=== PATIENT | female | born 1945 | race Caucasian/White ===

== ENCOUNTER → 2017-02-16 | Outpatient (CLI) | payer MEDICARE | END | disposition home or self-care (01) | LOC: LABWHC1 12:17 | PROVIDERS: ATTEND Orthopaedic Surgery | DX: Z01.812 Encounter for preprocedural laboratory examination (principal) | CPT/HCPCS: 87070 ==

== ENCOUNTER 2017-03-29 06:20 | Inpatient (IN) | payer MEDICARE ==
[2017-03-23 12:26] VITALS: BMI 35.1
--- NOTE | 2017-03-28 09:24 | HP ---
HISTORY AND PHYSICAL CHIEF COMPLAINT: Right knee pain. HISTORY OF PRESENT ILLNESS: The patient is a 71-year-old retired female who presents with progressive right knee pain secondary to osteoarthrosis despite extensive conservative measures. She is having pain that limits her normal function and activities. She has swelling and clicking. She has tried medications as well as injections. PAST MEDICAL HISTORY: Significant for diabetes, hypertension, renal disease, arthritis. PAST SURGICAL HISTORY: Significant for a right carpal tunnel release in addition to left rotator cuff repair. CURRENT MEDICATIONS: 1. Lisinopril. 2. Spironolactone. 3. Aspirin. She denies drug allergies. FAMILY HISTORY: Significant for cancer. SOCIAL HISTORY: Negative for current tobacco or alcohol use. 16 POINT REVIEW OF SYSTEMS: Otherwise reviewed and is noncontributory. On examination, the patient is approximately 5 foot 3, 188 pounds of endomorphic habitus. HEENT exam is nonfocal. Neck is supple. She has painless passive motion of her right hip. Active motion of her right knee is -8 to 110 degrees of flexion. She is tender about the lateral joint line. She has a large effusion. Collaterals are stable, Seema's negative, Mayela's is equivocal. She has genu valgum alignment. Her distal neurovascular exam appears to be intact in the left lower extremity. Weightbearing. notch., lateral and Merchant views of the right knee obtained in the office show severe lateral and patellofemoral compartment narrowing. IMPRESSION: 1. Right knee severe lateral and patellofemoral compartment osteoarthrosis. 2. Diabetes. 3. Increased body mass index. RECOMMENDATIONS: I talked to the patient at length regarding her treatment options. At this point, she opts to proceed with surgery. We will plan to proceed with right total knee arthroplasty. Risks and benefits were discussed at length in layman's terms. We will institute DVT prophylaxis postoperatively. MMODL / IJN: [id number] /
[~2017-03-29 06:20] MED LIST: ACETAMINOPHEN TAB 500 MG TAB PO ONE; DEXAMETHASONE SOD PHOSPHATE 10 MG/ML 1 ML VIAL IV ONE; MELOXICAM 7.5 MG TAB PO ONE; MIDAZOLAM 2 MG/2 ML VIAL IV PRN; ONDANSETRON 4 MG/2 ML VIAL IVP ONE; TRANEXAMIC ACID 1,000 MG in SODIUM CHLORIDE 0.9% 100 ML IVPB ONE; ceFAZolin 2 GM in SODIUM CHLORIDE 0.9% 100 ML IVPB ONE; fentaNYL (PF) 50 MCG/ML 2 ML AMP IV PRN
[2017-03-29] MEDS ORDERED: LIDOCAINE 1% 20 ML VIAL (10MG/ML) FOR IV START INTRADERMA ONE (06:54)
[2017-03-29] MEDS: LACTATED RINGERS 1,000 ML IV SCH (06:54)
[2017-03-29 07:07] LABS: Glucose,Whole Blood 125 mg/dL (75-99)
[2017-03-29] MEDS ORDERED: fentaNYL (PF) 50 MCG/ML 2 ML AMP IV ONE (07:19)
[2017-03-29] MEDS ORDERED: MIDAZOLAM 2 MG/2 ML VIAL ONE (08:05)
[2017-03-29] MEDS ORDERED: ceFAZolin 3,000 MG in SODIUM CHLORIDE 0.9% IRRIGATIO 3,000 ML IRRIGATION ONE (08:05)
[2017-03-29] MEDS ORDERED: fentaNYL (PF) 50 MCG/ML 2 ML AMP ONE (08:05)
[2017-03-29] MEDS ORDERED: PHENYLEPHRINE-0.9% NACL SYG 1 MG/10 ML SYRINGE ONE (08:05)
[2017-03-29] MEDS ORDERED: SODIUM CHLORIDE 0.9% 100 ML BAG ONE (08:05)
[2017-03-29] MEDS ORDERED: ePHEDrine SULFATE/0.9% NACL/PF 50 MG/5 ML SYRINGE IV ONE (08:05)
[2017-03-29] MEDS ORDERED: PROPOFOL 10 MG/ML 20 ML VIAL IV ONE (08:05)
[2017-03-29] MEDS ORDERED: TRANEXAMIC ACID 1,000 MG/10 ML VIAL ONE (08:05)
[2017-03-29] MEDS: ROPIVACAINE 246.25 MG, EPINEPHrine 0.5 MG, KETOROLAC 30 MG, cloNIDine HCL/PF 80 MCG, WA... MISCELLANE ONE ×10 (08:38→09:33)
[2017-03-29] MEDS ORDERED: LACTATED RINGERS 1,000 ML IV ONE ×2 (09:17→14:29)
[2017-03-29] MEDS ORDERED: MAGNESIUM HYDROXIDE 2,400 MG/10 ML CUP PO PRN (09:46)
[2017-03-29] MEDS ORDERED: ONDANSETRON 4 MG/2 ML VIAL IVP PRN (09:46)
[2017-03-29] MEDS ORDERED: NALOXONE 0.4 MG/ML 1 ML VIAL IV PRN (09:46)
[2017-03-29] MEDS ORDERED: ACETAMINOPHEN TAB 325 MG TAB PO PRN (09:46)
[2017-03-29] MEDS ORDERED: ROPIVACAINE 1,100 MG, SODIUM CHLORIDE 0.9% 330 ML MISCELLANE PRN ×2 (09:48)
--- NOTE | 2017-03-29 09:51 | P.ONQ ---
Anesthesiology Proc Note - PNB - Peripheral Nerve Block Performed Right Adductor Canal Infusion Time Out Performed: Yes Indication: Acute Post-Operative Pain, Analgesia Specifically requested for management of pain by : Mauro Rich Sedation Type: Sedate with meaningful contact maintained Preparation: Sterile Prep Position: Supine Catheter Depth at Skin (cm): 8 Needle Types: Other (see comment) (pajunk) Needle Size: 100mm (4") Needle Gauge: 18 Technique: Ultrasound Injectate: 0.5% Ropivacaine (see comment for volume) (20 cc) Blood Aspirated: No Pain Paresthesia on Injection Noted: No Resistance on Injection: Normal Events: Uneventful and Well Tolerated
--- NOTE | 2017-03-29 09:51 | P.DS ---
Providers Date of admission: 03/29/17 06:20 Expected date of discharge: 03/31/17 Attending physician: Mauro Rich Consults: 03/29/17 09:46 Consult Physician Routine Consulting Provider: Fausto Velez Reason/Comments: medical managment Do you want consulting provider notified?: Yes Primary care physician: Fausto Velez [facility] Course: Date of admission: 03/29/2017 Date of discharge: 03/31/2017 Admission diagnosis: Right total knee arthroplasty Discharge diagnosis: Same Attending physician: Dr. Rich Surgical procedures: Right total knee arthroplasty Brief history: Patient is a 71-year-old female with a history of progressive primary right knee has arthritis. At this point patient has failed conservative treatment measures and has opted to proceed with a elective right total knee arthroplasty. Hospital course: Details of patient's surgery can be found in operative report. Patient tolerated the procedure well and was subsequently transported to orthopedic floor. Patient's orthopeidc and medical care was provided daily. Patient had daily laboratory tests performed for evaluation of overall blood counts. Patient had daily physical therapy to include strengthening range of motion as well as education with walker ambulation. Patient had daily CPM usage as part of their physical therapy program. Patient was treated with Xarelto for their postoperative DVT prophylaxis during their inpatient stay. Patient was noted to have a relatively uneventful postoperative course. Patient reported satisfactory pain control with oral pain medications by postoperative day 0. Patient showed satisfactory progress with physical therapy. Patient moved steadily through the program and had no difficulty meeting the goals by postoperative day 2. Given patient's otherwise satisfactory course and having met physical therapy goals, plan is to discharge patient home on postoperative day 2. Discharge condition/disposition: Patient will be discharged home] in stable condition. Discharge medications: Instructions are given on resumption of patient's normal daily medications per primary care recommendation, in addition patient will be prescribed [place] 7.5 mg/325 mg, tramadol 50 mg, Pepcid 20 mg, Xarelto 10 mg. Discharge instructions: 1. Wound care and infection precautions, [keep incision dry and covered while showering], no lotions, creams, moisturizers. No soaking, tubs, pools, hottubs. Do not scrub over the incision. 2. Weight-bear [as tolerated] with walker / cane until follow-up. 3. Ice and elevate when necessary. Do not exceed 20 minutes per hour with ice pack. 4. Utilize compression sleeve until seen at first follow up appointment. 5. Visiting nursing care. 6. Home physical therapy [including home CPM]. 7. Pain meds and anticoagulants per prescription. 8. Pain medication has potential to cause constipation. Increase oral fluid and fiber intake. Contact primary care provider if you have not had a bowel movement within 48 hours after discharge 9. No anti-inflammatory medication until discussed at first post operative visit, this including Motrin, Aleve, Mobic, Diclofenac. 10. Follow up in office at 2 weeks postop with Doug Hernandez PA-C 11. Follow up with your primary care doctor 7-10 days after discharge. 12. Contact [facility] with any questions, . Procedures: Right total knee arthroplasty Patient Condition at Discharge: Good Plan - Discharge Summary New Discharge Prescriptions: New Rivaroxaban [Xarelto] 10 mg PO DAILY #12 tab Famotidine [Pepcid] 20 mg PO DAILY #30 tablet HYDROcodone/APAP 7.5-325MG [[place] 7.5] 1 - 2 each PO Q6HR PRN #60 tab PRN Reason: Pain traMADol HCl [Ultram] 50 mg PO Q6H PRN #40 tab PRN Reason: Pain No Action Multivitamins, Thera [Multivitamin] 1 tab PO DAILY Spironolactone [Aldactone] 25 mg PO BID Lisinopril [Zestril] 5 mg PO DAILY Cholecalciferol [Vitamin D3] 2,000 unit PO BID Calcium Carbonate/Vitamin D3 [Calcium 500-Vit D3 600 Tablet] 1 tab PO DAILY Aspirin [Adult Low Dose Aspirin EC] 81 mg PO HS Magnesium Oxide [Mag-Ox] 250 mg PO BID Docusate [Colace] 100 mg PO DAILY Discharge Medication List Aspirin [Adult Low Dose Aspirin EC] 81 mg PO HS 07/01/16 [History] Calcium Carbonate/Vitamin D3 [Calcium 500-Vit D3 600 Tablet] 1 tab PO DAILY [History] Cholecalciferol [Vitamin D3] 2,000 unit PO BID 07/01/16 [History] Lisinopril [Zestril] 5 mg PO DAILY 07/01/16 [History] Multivitamins, Thera [Multivitamin] 1 tab PO DAILY 07/01/16 [History] Spironolactone [Aldactone] 25 mg PO BID 07/01/16 [History] Docusate [Colace] 100 mg PO DAILY 03/23/17 [History] Magnesium Oxide [Mag-Ox] 250 mg PO BID 03/23/17 [History] Rivaroxaban [Xarelto] 10 mg PO DAILY #12 tab 03/29/17 [Rx] Famotidine [Pepcid] 20 mg PO DAILY #30 tablet 03/30/17 [Rx] HYDROcodone/APAP 7.5-325MG [[place] 7.5] 1 - 2 each PO Q6HR PRN #60 tab 03/30/17 [ Rx] traMADol HCl [Ultram] 50 mg PO Q6H PRN #40 tab 03/30/17 [Rx] Follow up Appointment(s)/Referral(s): Fausto Velez MD [Primary Care Provider] - 04/07/17 8:00 am Salty Hernandez PAC [PHYSICIAN MIDDLEWARE ARCHITECT] - 04/13/17 2:10 pm Activity/Diet/Wound Care/Special Instructions: Orthopedic Discharge Instructions: 1. Wound care and infection precautions, keep incision dry and covered while showering, no lotions, creams, moisturizers. No soaking, pools, hot tubs. Do not scrub over incision. 2. Weight-bear as tolerated with walker / cane until follow-up. 3. Ice and elevate when necessary. Do not exceed 20 minutes per hour with ice pack. 4. Utilize compression sleeve until seen at first follow up appointment. 5. Visiting nursing care. 6. Home physical therapy including home CPM. 7. Pain meds and anticoagulants per prescription. 8. Pain medication has potential to cause constipation. Increase oral fluid and fiber intake. Contact primary care provider if you have not had a bowel movement within 48 hours after discharge. 9. No anti-inflammatory medication until discussed at first post operative visit, this including Motrin, Aleve, Mobic, Diclofenac. 10. Follow up in office at 2 weeks postop with Doug Hernandez PA-C 11. Follow up with your primary care doctor 7-10 days after discharge. 12. Contact [facility] with any questions, . Discharge Disposition: HOME WITH HOME HEALTH SERVICES
--- NOTE | 2017-03-29 10:19 | P.OP ---
Date of Procedure: 03/29/17 Preoperative Diagnosis: Right knee severe tricompartmental osteoarthrosis-primary Postoperative Diagnosis: Same Procedure(s) Performed: Right total knee mmmoypvlmnor-qewdjbex-qyltjpjte stabilized Implants: Depuy Attune size 5 cemented femoral component, size 5 cemented tibial component , 11 mm articular surface, 35 mm cemented patellar component. This is a posterior stabilized implant. Anesthesia: regional, local, spinal Surgeon: Mauro Rich Enlisted Aircrew/Aerial Observer/Gunner #1: Salty Hernandez Estimated Blood Loss (ml): 50 Pathology: other (Bone fragments) Condition: stable Disposition: PACU Indications for Procedure: The patient's a 71-year-old female who presents with progressive right knee pain secondary to osteoarthrosis despite conservative measures. A discussion of the risks and benefits of operative intervention versus continued conservative measures was made with the patient. She opted to proceed with surgery. Operative risks to include infection, neurovascular injury, development of blood clots, possible component loosening, possible component failure and need for subsequent procedures was discussed. Informed consent was obtained. Operative Findings: As below Description of Procedure: The patient was brought to the operating room, and after induction of spinal anesthesia the right lower extremity was prepped and draped in a normal fashion. The tourniquet was inflated to 270 mmHg. A longitudinal incision extending 3 finger breaths above the superior pole of the patella extending to the medial aspect of the tibial tubercle was then made. The skin and subcutaneous tissues were divided sharply. Electrocautery was used for hemostasis. A medial parapatellar arthrotomy was performed. The medial soft tissues to include the superficial and deep portions of the medial collateral ligament were elevated subperiosteally. The patella was everted. A portion of the retropatellar fat pad was excised sharply. The knee was flexed. The anterior cruciate ligament was sacrificed. A starting hole was made in the distal femur 1 cm anterior to the posterior cruciate ligament origin. An intramedullary femoral guide was inserted planning on 5 valgus distal cut with 9 mm distal resection. The cutting block was pinned in place. The distal cut was then made. The posterior referencing sizing guide was utilized. 3 of external rotation was built into the system and verified off the trans- epicondylar axis and the posterior condyles. The cutting block was pinned in place. I felt size 5 was most appropriate. The anterior, posterior, and chamfer cuts were then made. The bone fragments were removed. The box cutting guide was placed and pinned. The proximal cut was made with a reciprocating saw. The bone block was removed in one fragment. The trial size 5 femoral component was placed and was fully seated. There was good anterior to posterior and medial to lateral fit. The distal peg holes were drilled. Attention was then paid towards preparing the proximal tibia. An extra medullary guide was utilized in line with the tibial shaft and second metatarsal distally. 3 of posterior slope was planned. I planned on 2 mm resection from the lateral compartment. The cutting block was pinned in place. The proximal tibia cut was made in the bone removed in one fragment. The tibia sized most appropriately at size 5. The remnants of the medial and lateral menisci were excised the capsule junction with electrocautery. The trial femoral and tibial components were placed along with an 11 mm articular surface. I was able to obtain full flexion and extension with good stability with varus and valgus stress. After several flexion and extension cycles the tibial rotation was marked with electrocautery in line with the medial one third of the tibial tubercle. I did piecrust the iliotibial tract to help with balancing. Attention was then paid towards preparing the patella. A patella reamer was utilized taking this down to 14 mm of bone stock. A good flush cut was made. The patella sized most appropriately at 35 mm. The peg holes were drilled. The trial component was placed. The knee was taken through range of motion. I had good patellofemoral tracking with no hands technique. The trial components were then removed. The posterior osteophytes of the distal femur were carefully removed with a curved osteotome. The tibia was prepared in the appropriate rotation with appropriate drill and keel punch. The flexion and extension gaps were checked and felt to be symmetric. The posterior soft tissues were injected with ropivacaine. The bony surfaces were prepared with pulsatile lavage and dried. The tibial component was then cemented in placed and was fully seated. Excess cement was removed. The femoral component was cemented place and was fully seated. Excess cement was removed. The trial 11 mm articular surface was placed and the knee was put in full extension. The patella component was cemented in place. After the cement had sufficiently hardened, the knee was again taken through range of motion. Again I was able to obtain full flexion and extension with good stability with varus and valgus stress. The trial articular surface was removed and the final one inserted. This was fully seated. Care taken to avoid any soft tissue interposition. Pulsatile lavage was again utilized. The medial parapatellar arthrotomy was closed with #2 Ethibond suture. A deep drain was placed exiting laterally. Final hemostasis was obtained with electrocautery and the tourniquet was deflated with approximately 1 hour total tourniquet time. The second dose of IV TXA was given. The subcutaneous tissues were reapproximated with interrupted 2-0 Vicryl sutures. The skin was reapproximated with 3-0 subcuticular strata fix suture. Skin tape and adhesive was applied. A sterile dressing was applied. The patient was awoken from sedation and transferred to recovery room in good condition. Blood loss was estimated 50 mL. No complications were incurred. Sponge and needle counts were correct at the end the case.
[2017-03-29 10:26] LABS: Glucose,Whole Blood 148 mg/dL (75-99)
--- NOTE | 2017-03-29 10:33 | XR ---
EXAMINATION TYPE: XR knee limited RT DATE OF EXAM: 03/29/2017 COMPARISON: NONE TECHNIQUE: Two views submitted HISTORY: Post op FINDINGS: There is a prosthetic knee in near anatomic alignment. There is soft tissue edema and emphysema. Vora rgical drain noted. IMPRESSION: 1. Postoperative change. Appears in near-anatomic alignment
[2017-03-29] MEDS: HYDROcodone/APAP 7.5-325MG 1 EACH TAB PO PRN (17:24)
[2017-03-29] MEDS: ceFAZolin 2 GM in SODIUM CHLORIDE 0.9% 100 ML IVPB SCH (17:38)
[2017-03-29] MEDS: SENNOSIDES-DOCUSATE SODIUM 1 EACH TAB PO SCH (20:23)
[2017-03-30] MEDS: HYDROcodone/APAP 7.5-325MG 1 EACH TAB PO PRN ×5 (00:19→20:42)
[2017-03-30] MEDS: ceFAZolin 2 GM in SODIUM CHLORIDE 0.9% 100 ML IVPB SCH (00:19)
[2017-03-30] MEDS: traMADol 50 MG TAB PO PRN ×5 (02:07→23:05)
[2017-03-30 02:24] VITALS: RESP 16
[2017-03-30 07:07] LABS: Glucose,Whole Blood 111 mg/dL (75-99)
[2017-03-30 07:11] LABS: Basophils % (A) 0 %; CH 31.6; CHCM 33.5; Eosinophils % (A) 0 %; HCT 35.7 % (34.0-46.0); HDW 2.85; HGB 11.6 gm/dL (11.4-16.0); Luc % (Auto) 1; Lymphocytes # (A) 1.2 k/uL (1.0-4.8); Lymphocytes % (A) 10 %; MCH 30.9 pg (25.0-35.0); MCHC 32.6 g/dL (31.0-37.0); MCV 94.9 fL (80.0-100.0); Mean Platelet Volume 7.5; Monocytes # (A) 0.8 k/uL (0-1.0); Monocytes % (A) 7 %; Neutrophils # (A) 9.4 k/uL (1.3-7.7); Neutrophils % (A) 82 %; RBC 3.76 m/uL (3.80-5.40); RDW 14.1 % (11.5-15.5); WBC 11.6 k/uL (3.8-10.6); WBC (Perox) 11.93
[2017-03-30] MEDS: LACTATED RINGERS 1,000 ML IV SCH ×2 (07:11→22:58)
[2017-03-30] MEDS: RIVAROXABAN 10 MG TAB PO SCH (08:42)
[2017-03-30] MEDS: FAMOTIDINE 20 MG TAB PO SCH (08:43)
--- NOTE | 2017-03-30 09:58 | P.PN ---
Subjective Principal diagnosis: Status post right total knee arthroplasty Patient is seen today resting in her hospital chair, she appears comfortable. Pain is well-controlled. She did have some increasing pain last night. Urinary cath is discontinued, she's ambulated with therapy. Patient denies any headaches, lightheadedness, chest pain, shortness of breath, abdominal discomfort, fever or chills. Objective - Vital Signs Vital signs: Vital Signs Temp 97.7 F 03/30/17 07:29 Pulse 72 03/30/17 07:29 Resp 16 03/30/17 07:29 BP 116/59 03/30/17 07:29 Pulse Ox 96 03/30/17 07:29 Intake & Output 03/29/17 03/30/17 03/30/17 18:59 06:59 18:59 Intake Total 1701 100 Output Total 1050 1470 100 Balance 651 -1470 0 Weight 84.368 kg Intake: IV 1701 Oral 100 Output: Drainage 220 Right Knee 220 Urine 950 1250 100 Uretheral (Yañez) 100 Estimated Blood Loss 100 - Exam R lower extremity: Incision is clean, dry, and intact. The prineo tape is in good condition. There is minimal soft tissue swelling and ecchymosis surrounding the medial and lateral aspects of the incision. Calf is soft, no tenderness with palpation. Plantar flexion, dorsiflexion, EHL, FHL are intact. Sensory exam to light touch throughout the extremity is intact, dorsal pedis pulses 2+. - Labs CBC & Chem 7: 03/30/17 06:30 Labs: Abnormal Lab Results - Last 24 Hours (Table) 03/29/17 03/30/17 03/30/17 Range/Units 10:20 06:30 07:03 WBC 11.6 H (3.8-10.6) k/uL RBC 3.76 L (3.80-5.40) m/uL Neutrophils # 9.4 H (1.3-7.7) k/uL POC Glucose (mg/dL) 148 H 111 H (75-99) mg/dL Assessment and Plan Plan: Assessment: 1. Postop day 1 status post right total knee arthroplasty Plan: 1. Pain control, we'll discharge home on oral medication 2. Home nursing and therapy after discharge 3. Wound care instructions discussed with patient, including but icing and elevating techniques 4. GI and DVT prophylaxis, Xarelto 10 mg once a day at discharge 5. Medical recommendations 6. Discharge planning: Patient will possibly be discharged home later today, if not tomorrow Time with Patient: Less than 30
[2017-03-30 11:21] LABS: Glucose,Whole Blood 132 mg/dL (75-99)
[2017-03-30] MEDS ORDERED: MORPHINE SULFATE 4 MG/ML SYRINGE IVP PRN (16:39)
--- NOTE | 2017-03-30 19:57 | CONS ---
CONSULTATION DATE OF CONSULTATION: 03/30/2017 REASON FOR CONSULTATION: Medical management requested by Dr. Velez. This is a pleasant 71-year-old patient who has undergone a right total knee arthroplasty. The patient is a diet controlled diabetic, hypertension, osteoarthritis of the joints, chronic kidney disease, and chronic low back pain. The patient has undergone a right total knee arthroplasty. Having some pain in the joints and spasms. No nausea or vomiting. at the bedside. Sitting up in a chair. Denies any cardiac history. Did tolerate her breakfast. REVIEW OF SYSTEMS: CONSTITUTIONAL: None. HEENT: None. RESPIRATORY: None. CARDIOVASCULAR: None. GASTROINTESTINAL: None. GENITOURINARY: None. MUSCULOSKELETAL: As above. DERMATOLOGICAL: None. HEMATOLOGICAL: None. LYMPHATICS: None. PSYCHIATRIC: None. NEUROLOGICAL: None. PAST HISTORY: Diet control diabetes, hypertension, osteoarthritis, kidney disease, chronic low back pain. 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 SOCIAL HISTORY: . Alcohol rarely. Does not smoke. FAMILY HISTORY: Reviewed, noncontributory to presentation. HOME MEDICATIONS: 1. Aldactone 25 mg p.o. b.i.d. 2. Multivitamin 1 tab p.o. daily. 3. Magnesium oxide 250 mg p.o. b.i.d. 4. Zestril 5 mg p.o. daily. 5. Colace 100 mg p.o. daily. 6. Vitamin D3, 2,000 units p.o. daily. 7. Calcium with vitamin D3, 1 tab p.o. daily. 8. Aspirin 81 mg p.o. q.h.s. 9. Ultram 50 mg p.o. q.6h p.r.n. 10.Xarelto 10 mg p.o. daily. 11.[place] 7.5, 1-2 tablets q.6h p.r.n. 12.Pepcid 20 mg p.o. daily. ALLERGIES: DILAUDID AND MEPERIDINE. PHYSICAL EXAMINATION: Temperature 96.8, pulse 71, respirations 16, blood pressure 96/50, pulse ox 95% on room air. GENERAL APPEARANCE: Well built, BMI 35.1. Sitting up in a chair comfortable. EYES: Pupils equal. Conjunctivae normal. HEENT: Oral cavity normal. NECK: JVD not raised. Mass not palpable. Respiratory effort normal. LUNGS: Clear. CARDIOVASCULAR; First and second sounds normal. No edema. ABDOMEN: Soft, nontender. Liver and spleen not palpable. LYMPHATICS: No lymph node palpable in neck or axilla. PSYCHIATRY: Alert and oriented x3. Mood and affect normal. NEUROLOGICAL: grossly intact. Power and sensation grossly intact. MUSCULOSKELETAL: Dressing over the right knee. INVESTIGATIONS: White count 10.6, hemoglobin 11.6. Accu-Cheks are noted. ASSESSMENT: 1. Right total knee arthroplasty. 2. Primary osteoarthritis, multiple joints bilateral. 3. Postoperative hypotension, could be a combination of blood loss and anesthesia. 4. Essential hypertension history, currently blood pressure is running low. 5. Chronic kidney disease. I do not have the patient's renal function. Will check it today. Care was discussed with the patient and at the bedside. Questions were answered. Pain control as per the primary team. For DVT prophylaxis the patient is on Xarelto. Thank you, Dr. Rich. KACIEL / NAKULN: [id number] /
[2017-03-30] MEDS: SENNOSIDES-DOCUSATE SODIUM 1 EACH TAB PO SCH (20:42)
[2017-03-30] MEDS: hydrOXYzine PAMOATE 25 MG CAP PO PRN (22:30)
[2017-03-31] MEDS: HYDROcodone/APAP 7.5-325MG 1 EACH TAB PO PRN ×2 (04:22→09:29)
[2017-03-31] MEDS: hydrOXYzine PAMOATE 25 MG CAP PO PRN (04:22)
[2017-03-31] MEDS ORDERED: LISINOPRIL 5 MG TAB PO SCH (09:00)
[2017-03-31] MEDS: RIVAROXABAN 10 MG TAB PO SCH (09:29)
[2017-03-31] MEDS: FAMOTIDINE 20 MG TAB PO SCH (09:30)
[2017-03-31 10:14] VITALS: BP 135/78; PULSE 83; TEMP 97.4
--- NOTE | 2017-03-31 11:31 | CDI ---
In responding to this query, please exercise your independent professional judgment. The [facility] Coding Staff and Clinical Documentation Specialists appreciate your assistance in clarifying documentation, maintaining compliance with coding guidelines, accurately documenting patients condition and capturing severity of illness. The fact that a question is asked does not imply that any particular answer is desired or expected. Communication forms are a method of clarifying documentation and are not made part of the Legal Health Record. Thank you in advance for your clarification. Last Revision, Aug 2016 Ashley Enriquez [address] [place] [address] Documentation Clarification Form Date: 03/31/2017 11:12:00 AM From: Laura Pearl CCS, CCDS Admit Date: 03/29/2017 6:20:00 AM Patient Name: Erika Fall Visit Number: [id number] Discharge Date: Dr. Raad Guillen: Postoperative hypotension, could be a combination of blood loss & anesthesia is documented in the medical management consult. Patients Admitting Diagnosis: Primary osteoarthritis, multiple joints bilateral. Post-Operative Diagnosis: same Procedure performed: Right total knee arthroplasty. History/Risk Factors: Hypertension, CKD (stage not documented), DM Clinical Indicators: VS: Preop BP 144/71, Postop BP 91/53, 82/49, 116/59 at discharge. Hemoglobin stable. Treatment: Home meds: Lisinopril, Spironolactone, Aspirin. Pain managed with peripheral nerve block & po meds. Consults: Medical management In order to accurately reflect this patients severity of illness, please clarify if the post-operative diagnosis is: An expected post-procedural or post-surgical condition Integral to the procedure Inherent to the procedure An unexpected post-procedural or post-surgical condition, related to surgical care Other, please specify Unable to determine Please document in your progress notes and discharge summary in order to capture severity of illness and risk of mortality. Include clinical findings that support your diagnosis. FYI: Press F11 to launch patient chart MTDD
--- NOTE | 2017-03-31 11:42 | CDI ---
In responding to this query, please exercise your independent professional judgment. The [facility] Coding Staff and Clinical Documentation Specialists appreciate your assistance in clarifying documentation, maintaining compliance with coding guidelines, accurately documenting patients condition and capturing severity of illness. The fact that a question is asked does not imply that any particular answer is desired or expected. Communication forms are a method of clarifying documentation and are not made part of the Legal Health Record. Thank you in advance for your clarification. Last Revision, May 2015 Ashley Enriquez [address] [place] [address] Documentation Clarification Form Date: 03/31/2017 11:33:00 AM From: Laura Pearl CCS, CCDS Admit Date: 03/29/2017 6:20:00 AM Patient Name: Erika Fall Visit Number: [id number] Discharge Date: Dr. Raad Guillen: Per the medical management consult: this patient has a history of DM & chronic kidney disease. The patient's renal function was unknown & was to be evaluated. Current & Baseline BUN/CR/GFR unavailable. Gluce 125, 148, 111, 132. Treatment: IV Kefzol, IV Zofran, IV Fentanyl, IV Morphine. PT. In order to capture the severity of condition, please clarify if the condition signifies, if possible: CKD Stage 1 (GFR > 90) CKD Stage 2 (GFR 60-89) CKD Stage 3 (GFR 30-59) CKD Stage 4 (GFR 15-29) CKD Stage 5 (GFR <15) ESRD Unable to determine Other condition, please specify Please document in your progress notes and discharge summary in order to capture severity of illness and risk of mortality. Include clinical findings that support your diagnosis. FYI: Press F11 to launch patient chart. JO-ANN
--- NOTE | 2017-03-31 12:18 | P.PN ---
Subjective Principal diagnosis: Status post right total knee arthroplasty Patient is seen today resting in her hospital chair, she appears comfortable. Pain is well-controlled. Patient denies any headaches, lightheadedness, chest pain, shortness of breath, abdominal discomfort, fever or chills. Objective - Vital Signs Vital signs: Vital Signs Temp 97.4 F L 03/31/17 07:00 Pulse 83 03/31/17 07:00 Resp 16 03/31/17 07:00 BP 135/78 03/31/17 07:00 Pulse Ox 100 03/31/17 07:00 Intake & Output 03/30/17 03/31/17 03/31/17 18:59 06:59 18:59 Intake Total 330 Output Total 500 Balance -170 Intake: IV 50 Lactated Ringers 1,000 ml 50 @ 50 mls/hr IV .Q20H JAGUAR Rx#:[id number] Oral 280 Output: Urine 500 Uretheral (Yañez) 100 Other: # Voids 1 1 2 - Exam : Incision is clean, dry, and intact. The prineo tape is in good condition. There is minimal soft tissue swelling and ecchymosis surrounding the medial and lateral aspects of the incision. Calf is soft, no tenderness with palpation. Plantar flexion, dorsiflexion, EHL, FHL are intact. Sensory exam to light touch throughout the extremity is intact, dorsal pedis pulses 2+. - Labs CBC & Chem 7: 03/30/17 06:30 Assessment and Plan Plan: Assessment: 1. Postop day 2 status post right total knee arthroplasty Plan: 1. Pain control, we'll discharge home on oral medication 2. Home nursing and therapy after discharge 3. Wound care instructions discussed with patient, including but icing and elevating techniques 4. GI and DVT prophylaxis, Xarelto 10 mg once a day at discharge 5. Medical recommendations 6. Discharge planning: Patient will be discharged home today Time with Patient: Less than 30
--- NOTE | 2017-03-31 14:09 | CONS ---
CONSULTATION ADDENDUM: DATE OF CONSULTATION: 03/30/2017 ASSESSMENT: Acute postoperative hypertension likely an expected inherent manifestation of anesthesia and surgery. MMODL / IJN: [id number] /
--- NOTE | 2017-03-31 18:16 | PN ---
PROGRESS NOTE DATE OF SERVICE: 03/31/2017 This 71-year-old woman who was admitted after right total knee arthroplasty improved significantly. No chest pain. No palpitations. No fever. EXAM: Alert, oriented x3. Pulse 69, blood pressure 111/71, respiratory 16, temperature 98 degrees, pulse ox 98% room air. HEENT: Conjunctivae normal. Oral mucosa moist. NECK: No jugular venous distention. No carotid bruit. No lymph node enlargement. CARDIOVASCULAR: S1, S2. RESPIRATORY: Breath sounds diminished in the bases. No rhonchi, no crackles. ABDOMEN: Soft, nontender. LEGS: No edema. NERVOUS SYSTEM: No focal deficits. LABS: At this time shows WBC 7.2, hemoglobin 7.6. ASSESSMENT: 1. Status post right hip hemiarthroplasty. 2. Degenerative joint disease. 3. Postoperative hypotension could be related to anesthesia. 4. History of hypertension. 5. History of chronic kidney disease. RECOMMENDATIONS AND DISCUSSION: Recommend to continue current medications, continue symptomatic treatment. Resume the home medications. Follow closely with primary physician and Orthopedic surgery. Further recommendations to follow. MMODL / IJN: [id number] /
== END 2017-03-31 13:30 | disposition home health service (06) | DRG 470 ==
LOC: 2ORMAIN 06:20 → 3SUR 14:25
PROVIDERS: ADMIT Orthopaedic Surgery; ATTEND Orthopaedic Surgery
PROC: 0SRC0J9 Replacement of Right Knee Joint with Synthetic Substitute, Cemented, Open Approach (ICD-10-PCS; principal; 2017-03-29 08:00)
DX: M17.11 Unilateral primary osteoarthritis, right knee (principal); I95.9 Hypotension, unspecified; E11.22 Type 2 diabetes mellitus with diabetic chronic kidney disease; M21.061 Valgus deformity, not elsewhere classified, right knee; G89.29 Other chronic pain; M54.5 Low back pain; M19.91 Primary osteoarthritis, unspecified site; I12.9 Hypertensive chronic kidney disease with stage 1 through stage 4 chronic kidney disease, or unspecified chronic kidney disease; N18.9 Chronic kidney disease, unspecified; Z79.82 Long term (current) use of aspirin; Z79.899 Other long term (current) drug therapy; Z88.5 Allergy status to narcotic agent
CPT/HCPCS: 85025; 88300

== ENCOUNTER 2017-09-14 06:56 | Day surgery (SDC) | payer MEDICARE ==
[2017-09-13 13:06] VITALS: BMI 34.4
[~2017-09-14 06:56] MED LIST changes: -ACETAMINOPHEN TAB 500 MG TAB PO ONE; -DEXAMETHASONE SOD PHOSPHATE 10 MG/ML 1 ML VIAL IV ONE; +LACTATED RINGERS 1,000 ML IV SCH; -MELOXICAM 7.5 MG TAB PO ONE; -MIDAZOLAM 2 MG/2 ML VIAL IV PRN; -ONDANSETRON 4 MG/2 ML VIAL IVP ONE; -TRANEXAMIC ACID 1,000 MG in SODIUM CHLORIDE 0.9% 100 ML IVPB ONE; -ceFAZolin 2 GM in SODIUM CHLORIDE 0.9% 100 ML IVPB ONE; -fentaNYL (PF) 50 MCG/ML 2 ML AMP IV PRN
[2017-09-14 07:27] VITALS: TEMP 98.3
[2017-09-14] MEDS ORDERED: LIDOCAINE 1% 20 ML VIAL (10MG/ML) FOR IV START INTRADERMA ONE (07:38)
[2017-09-14 07:42] LABS: Glucose,Whole Blood 123 mg/dL (75-99)
[2017-09-14] MEDS ORDERED: PROPOFOL 10 MG/ML 20 ML VIAL IV ONE (07:58)
--- NOTE | 2017-09-14 08:22 | P.PCN ---
Date of Procedure: 09/14/17 Procedure(s) Performed: BRIEF HISTORY: Patient is a 71-year-old pleasant female, scheduled for an elective colonoscopy as a part of screening for colorectal neoplasia. Her last colonoscopy was 12 years ago. PROCEDURE PERFORMED: Colonoscopy with snare polypectomy. PREOPERATIVE DIAGNOSIS: Screening for colon cancer. IV sedation per Anesthesia. PROCEDURE: After informed consent was obtained, the patient, was brought into the endoscopy unit. IV sedation was administered by Anesthesia under continuous monitoring. Digital rectal examination was normal. Initially the Olympus CF- 160 flexible video colonoscope was then inserted in the rectum, gradually advanced into the cecum without any difficulty. Careful examination was performed as the scope was gradually being withdrawn. Ileocecal valve and the appendiceal orifice were visualized and appeared normal. Prep was excellent. Mucosa of the cecum, ascending colon, transverse colon, descending colon, sigmoid colon, and rectum appeared normal. Retroflexion was performed in the rectum and no lesions were seen. The patient tolerated the procedure well. IMPRESSION: 1 cm sigmoid colon polyp status post polypectomy Scattered sigmoidal diverticulosis RECOMMENDATIONS: Findings of this examination were discussed with the patient as well as her family. She was advised to follow with the biopsy results. If the biopsy shows a tubular adenoma she can have a repeat colonoscopy in 3-5 years.
[2017-09-14 08:54] VITALS: PULSE 67; RESP 18
[2017-09-14 08:56] VITALS: BP 105/55
== END 2017-09-14 09:10 | disposition home or self-care (01) ==
LOC: ORWHC2ENDO 06:56
PROVIDERS: ATTEND Internal Medicine Gastroenterology
DX: Z12.11 Encounter for screening for malignant neoplasm of colon (principal); K63.5 Polyp of colon; K57.30 Diverticulosis of large intestine without perforation or abscess without bleeding; I10 Essential (primary) hypertension; E11.9 Type 2 diabetes mellitus without complications; N28.9 Disorder of kidney and ureter, unspecified; Z79.82 Long term (current) use of aspirin; Z79.899 Other long term (current) drug therapy; Z79.891 Long term (current) use of opiate analgesic; Z88.5 Allergy status to narcotic agent
CPT/HCPCS: 45385; 88305

== ENCOUNTER 2018-11-11 20:05 | Inpatient (IN) | payer MEDICARE ==
[2018-11-11] MEDS ORDERED: ASPIRIN 81 MG PO STA (20:25)
[2018-11-11] MEDS ORDERED: MORPHINE SULFATE 2 MG/ML SYRINGE IVP STA (20:25)
[2018-11-11] MEDS ORDERED: SODIUM CHLORIDE 0.9% 500 ML 500 ML IV STA ×2 (20:25→22:30)
[2018-11-11] MEDS ORDERED: NITROGLYCERIN SL TABS 0.4 MG TAB SUBLINGUAL STA (20:39)
[2018-11-11] MEDS ORDERED: MORPHINE SULFATE 4 MG/ML SYRINGE IV STA ×2 (20:39→21:08)
[2018-11-11 20:44] LABS: Basophils % (A) 0 %; Eosinophils # (A) 0.2 k/uL (0-0.7); Eosinophils % (A) 2 %; HCT 45.3 % (34.0-46.0); HGB 14.5 gm/dL (11.4-16.0); Lymphocytes # (A) 0.5 k/uL (1.0-4.8); Lymphocytes % (A) 5 %; MCHC 31.9 g/dL (31.0-37.0); MCV 90.9 fL (80.0-100.0); Mean Platelet Volume 6.3; Monocytes # (A) 0.6 k/uL (0-1.0); Monocytes % (A) 6 %; Neutrophils # (A) 9.5 k/uL (1.3-7.7); Neutrophils % (A) 86 %; Platelet Count 358 k/uL (150-450); RBC 4.99 m/uL (3.80-5.40); RDW 13.7 % (11.5-15.5); WBC 10.9 k/uL (3.8-10.6)
--- NOTE | 2018-11-11 20:51 | XR ---
EXAMINATION TYPE: XR chest 2V DATE OF EXAM: 11/11/2018 COMPARISON: None HISTORY: 73-year-old female with chest pain TECHNIQUE: PA and lateral views FINDINGS: Heart is normal size. Mild interstitial prominence as a chronic appearance. Some stringy atelectasis at the left base. No consolidation or pleural effusion. Low lung volumes with crowded vascular markin gs. IMPRESSION: Some hypoventilatory and chronic appearing changes. No definite acute process.
[2018-11-11 20:52] LABS: Albumin 4.2 g/dL (3.5-5.0); Calcium 9.9 mg/dL (8.4-10.2); Magnesium 2.2 mg/dL (1.6-2.3); Potassium 4.7 mmol/L (3.5-5.1); Total Bilirubin 1.3 mg/dL (0.2-1.3); Total Protein 7.6 g/dL (6.3-8.2)
[2018-11-11 20:59] LABS: INR 1.1 (<1.2); Partial Thromboplastin Time 24.5 sec (22.0-30.0); Prothrombin Time 11.4 sec (9.0-12.0)
[2018-11-11 21:01] LABS: D-Dimer 4.11 mg/L FEU (<0.60)
--- NOTE | 2018-11-11 21:36 | CT ---
EXAMINATION TYPE: CT chest angio for PE DATE OF EXAM: 11/11/2018 COMPARISON: Radiograph same date HISTORY: 73-year-old female with chest pain TECHNIQUE: Contiguous axial scanning of the chest performed with IV Contrast, patient injected with 1 00ml mL of Isovue 370. Coronal/sagittal MIP reconstructions performed. CT DLP: 362.6 mGycm Automated exposure control for dose reduction was used. FINDINGS: Heart normal size with trace anterior basilar pericardial fluid. Dense LAD calcifications. Aorta normal caliber with conventional arch vessel branching anatomy. Some motion artifact in the lower lungs. No definite pulmonary embolus. Several prominent lymph nodes in the right infrahilar region measuring 9 mm and left infrahilar regio n measuring 8 mm. Prominent bands of atelectasis or scarring in the lower lungs but with mild septal lines as well and a trace right effusion. No consolidation. Visualized upper abdomen shows numerous layering gallstones in the gallbladder. Bones: [facility] within the mid to lower thoracic spine. IMPRESSION: 1. The motion artifacts. No definite pulmonary embolus. 2. Prominent bands of scarring or atelectasis at the lung bases. Trace right effusion of uncertain et iology. Query patient's fluid status. 3. Prominent bilateral infrahilar lymph nodes measuring up to 9 mm. Consider 6 month follow-up CT as a precautionary measure. 4. Cholelithiasis.
[2018-11-11] MEDS ORDERED: ONDANSETRON 4 MG/2 ML VIAL IVP PRN (22:24)
[2018-11-11] MEDS ORDERED: MORPHINE SULFATE 5 MG/ML SYRINGE IVP PRN (22:24)
[2018-11-11] MEDS ORDERED: MORPHINE SULFATE 4 MG/ML SYRINGE IVP PRN (22:27)
--- NOTE | 2018-11-11 22:35 | ED ---
General Adult HPI - General Source: patient, RN notes reviewed, old records reviewed Mode of arrival: wheelchair <Mauro Chopra - Last Filed: 11/11/18 22:36> <Soraya Cerda - Last Filed: 11/13/18 06:44> - General Chief complaint: Chest Pain Stated complaint: Chest pain Time Seen by Provider: 11/11/18 20:24 - History of Present Illness Initial comments: 73-year-old female patient with past history of hypertension from counts include [facility] beds at the [facility] 1 month of pleuritic chest pain. Patient states that she did previously have a cough that has resolved. Patient was seen by her primary care provider plus probably had an outpatient CT chest angiography to rule out PE. Patient states that she did not have a PE identified at that time. Patient reports that last 3 days of pleuritic chest pain has gotten worse, still located in her substernal region. Patient denies any other complaints. Denies SOB. Denies abdominal pain, nausea vomiting diarrhea. Systemic: Pt denies fatigue, myalgia, fever/chills, rash. Pt denies weakness, night sweats, weight loss. Neuro: Pt denies headache, visual disturbances, syncope or pre-syncope. HEENT: Pt denies ocular discharge or irritation, otalgia, rhinorrhea, pharyngitis or notable lymphadenopathy. Cardiopulmonary: Pt denies SOB, heart palpitations, dyspnea on exertion. Abdominal/GI: Pt denies abdominal pain, n/v/d. : Pt denies dysuria, burning w/ urination, frequency/urgency. Denies new onset urinary or bowel incontinence. MSK: Pt denies myalgia, loss of strength or function in extremities. Neuro: Pt denies new onset weakness, paresthesias. (Mauro Chopra) - Related Data Home Medications Medication Instructions Recorded Confirmed Aspirin [Adult Low Dose Aspirin EC] 81 mg PO HS 07/01/16 11/11/18 Calcium Carbonate/Vitamin D3 1 tab PO HS 07/01/16 11/11/18 [Calcium 500-Vit D3 600 Tablet] Cholecalciferol [Vitamin D3] 2,000 unit PO BID 07/01/16 11/11/18 Lisinopril [Zestril] 5 mg PO DAILY 07/01/16 11/11/18 Multivitamins, Thera [Multivitamin] 1 tab PO DAILY 07/01/16 11/11/18 Spironolactone [Aldactone] 25 mg PO BID 07/01/16 11/11/18 Docusate [Colace] 100 mg PO DAILY 03/23/17 11/11/18 Magnesium Oxide [Mag-Ox] 250 mg PO DAILY 03/23/17 11/11/18 Allergies Allergy/AdvReac Type Severity Reaction Status Date / Time hydromorphone [From Dilaudid] AdvReac Severe Bloodpressure Verified 11/11/18 23:42 dropped after surgery, extending stay . meperidine [From Demerol] AdvReac Unknown Vomiting Verified 11/11/18 23:42 Review of Systems ROS Other: All systems not noted in ROS Statement are negative. <Mauro Chopra - Last Filed: 11/11/18 22:36> ROS Other: All systems not noted in ROS Statement are negative. <Soraya Cerda - Last Filed: 11/13/18 06:44> ROS Statement: Those systems with pertinent positive or pertinent negative responses have been documented in the HPI. Past Medical History Past Medical History: Cancer, Diabetes Mellitus, Hypertension, Osteoarthritis (OA), Renal Disease Additional Past Medical History / Comment(s): HX OF BASAL CELL SKIN CANCER, HEART MURMUR, decreased kidney function-stable per pt., plantar fascitis & heel spur History of Any Multi-Drug Resistant Organisms: None Reported Past Surgical History: Section, Joint Replacement, Orthopedic Surgery Additional Past Surgical History / Comment(s): X2, COLONOSCOPY, RIGHT PAROTID GLAND TUMOR, RIGHT CARPAL TUNNEL RELEASE, LEFT ROTATOR CUFF, MORTONS NEUROMA LEFT FOOT, right knee replaced Past Anesthesia/Blood Transfusion Reactions: No Reported Reaction Additional Past Anesthesia/Blood Transfusion Reaction / Comment(s): HX OF BLOOD TRANSFUSION 1975-NO REACTION. STATES DILAUDID DROPPED HER BLOOD PRESSURE AFTER SURGERY. Past Psychological History: No Psychological Hx Reported Smoking Status: Never smoker Past Alcohol Use History: Occasional Past Drug Use History: None Reported - Past Family History Mother Family Medical History: No Reported History <Mauro Chopra - Last Filed: 11/11/18 22:36> - Past Family History Mother Family Medical History: Asthma, COPD Additional Family Medical History / Comment(s): heart issues, GIB Father Family Medical History: Hypertension <Soraya Cerda - Last Filed: 11/13/18 06:44> General Exam <Mauro Chopra - Last Filed: 11/11/18 22:36> - General Exam Comments Initial Comments: Constitutional: NAD, AOX3, Pt has pleasant affect. HEENT: NC/AT, trachea midline, neck supple, no lymphadenopathy. Posterior pharynx non erythematous, without exudates. External ears appear normal, without discharge. Mucous membranes moist. Eyes PERRLA, EOM intact. There is no scleral icterus. No pallor noted. Cardiopulmonary: RRR, no murmurs, rubs or gallops, no JVD noted. Lungs CTAB in anterior and posterior garcia. No peripheral edema. Abdominal exam: Abdomen soft and non-distended. Abdomen non-tender to palpation in all 4 quadrants. Bowel sounds active in LLQ. No hepatosplenomegaly. No ecchymosis Neuro: CN II-XII grossly intact. No nuchal rigidity. MSK: No posterior calf tenderness bilaterally, homans sign negative bilaterally. Posterior tibialis and radial pulse +2 bilaterally. Sensation intact in upper and lower extremities. Full active ROM in upper and lower extremities, 5/5 stregnth. (Mauro Chopra) Course Vital Signs 11/11/18 11/11/18 11/11/18 20:17 20:18 20:20 Temperature Pulse Rate 109 H 104 H Respiratory 16 17 Rate Blood Pressure 138/73 138/73 O2 Sat by Pulse 96 96 95 Oximetry 11/11/18 11/11/18 11/11/18 21:00 21:10 21:20 Temperature Pulse Rate Respiratory 16 Rate Blood Pressure 107/59 114/67 114/67 O2 Sat by Pulse 96 Oximetry 11/11/18 11/11/18 11/11/18 21:30 21:40 21:50 Temperature Pulse Rate 96 94 96 Respiratory 15 21 14 Rate Blood Pressure 101/65 101/65 101/65 O2 Sat by Pulse 93 L 91 L 93 L Oximetry 11/11/18 11/11/18 11/11/18 22:00 22:10 22:20 Temperature Pulse Rate 96 100 96 Respiratory 22 23 22 Rate Blood Pressure 101/65 101/65 97/29 O2 Sat by Pulse 93 L 91 L 95 Oximetry 11/11/18 11/11/18 22:40 23:08 Temperature 98.8 F Pulse Rate 95 Respiratory 15 Rate Blood Pressure 97/68 O2 Sat by Pulse 95 Oximetry Medical Decision Making - Lab Data Result diagrams: 11/11/18 Unknown 11/11/18 Unknown <Mauro Chopra - Last Filed: 11/11/18 22:36> - Lab Data Result diagrams: 11/13/18 05:33 11/13/18 05:33 <Soraya Cerda - Last Filed: 11/13/18 06:44> - Medical Decision Making 73-year-old female patient with past history of hypertension from cd approximately 1 month of pleuritic chest pain. Patient states that she did previously have a cough that has resolved. Patient was seen by her primary care provider plus probably had an outpatient CT chest angiography to rule out PE. Patient states that she did not have a PE identified at that time. Patient reports that last 3 days of pleuritic chest pain has gotten worse, still located in her substernal region. Patient denies any other complaints. Denies SOB. Denies abdominal pain, nausea vomiting diarrhea. Patient vital signs stable, afebrile. Physical exam did not display acute pathology. Laboratory investigat ions revealed nonspecific CBC, CMP. D-dimer elevated. Coagulation studies otherwise negative. Troponin negative. BNP within normal limits. CT chest angiography did not display any pulmonary embolism. Trace right pleural effusion which was previously noted on prior CT. Infrahilar lymph nodes also noted. EKG displayed diffuse ST elevations, insistent with possible pericarditis. Patient Mr. lewis. Patient is currently pain free after morphine. Patient will be admitted for serial troponins and cardiology consult in the morning. Case discussed and pt seen by Dr. Cerda. (Mauro Chopra) I personally saw and evaluated the patient. Patient presented with intermittent chest pain which is progressively worsening over the past couple of days. Initial EKG had some abnormalities including hyper acute T waves, however troponin was negative. Patient did have persistent chest pain and repeat EKG was obtained which did show diffuse ST elevations. Given the patient's history there is concerned that she may have pericarditis. Decision was made to admit the patient to the hospital for evaluation by cardiology likely echo. We'll place the patient on anti-inflammatories and pain management. This plan was discussed with the patient is agreeable plan was discussed with the admitting physician who agrees as well. (Soraya Cerda) Disposition Is patient prescribed a controlled substance at d/c from ED?: No <Mauro Chopra - Last Filed: 11/11/18 22:36> <Soraya Cerda - Last Filed: 11/13/18 06:44> Clinical Impression: Chest pain Disposition: ADMITTED IP TO THIS HOSP Condition: Serious
--- NOTE | 2018-11-11 22:39 | ED ---
Medical Decision Making - Lab Data Result diagrams: 11/11/18 Unknown 11/11/18 Unknown - EKG Data -: EKG Interpreted by Me (and dr quesada) EKG Comments: 1) ventricular rate 104, OH interval 142, QRS 76, QT/QTC 3:30/433. Sinus tachycardia, low voltage QRS. 2) ventricular rate 99, and full and 50, QRS 78, QT/QTC 338/433. ST elevations V1 to V6. Consistent with acute pericarditis. Disposition Clinical Impression: Chest pain Disposition: ADMITTED IP TO THIS HOSP Condition: Serious Is patient prescribed a controlled substance at d/c from ED?: No
[2018-11-11] MEDS: IBUPROFEN 600 MG TAB PO SCH (23:13)
[2018-11-11] MEDS ORDERED: TEMAZEPAM 15 MG CAP PO PRN (23:13)
[2018-11-11] MEDS ORDERED: ALPRAZolam 0.25 MG TAB PO PRN (23:13)
[2018-11-12 06:51] LABS: Glucose,Whole Blood 150 mg/dL (75-99)
[2018-11-12 08:38] LABS: Basophils % (A) 0 %; Eosinophils # (A) 0.3 k/uL (0-0.7); Eosinophils % (A) 3 %; HCT 38.2 % (34.0-46.0); HGB 12.4 gm/dL (11.4-16.0); Lymphocytes # (A) 0.9 k/uL (1.0-4.8); Lymphocytes % (A) 9 %; MCHC 32.6 g/dL (31.0-37.0); MCV 91.9 fL (80.0-100.0); Mean Platelet Volume 6.7; Monocytes # (A) 1.2 k/uL (0-1.0); Monocytes % (A) 12 %; Neutrophils # (A) 7.1 k/uL (1.3-7.7); Neutrophils % (A) 74 %; Platelet Count 340 k/uL (150-450); RBC 4.15 m/uL (3.80-5.40); RDW 13.9 % (11.5-15.5); WBC 9.7 k/uL (3.8-10.6)
[2018-11-12] MEDS ORDERED: ASPIRIN 325 MG TAB PO SCH (09:00)
[2018-11-12] MEDS ORDERED: NON-FORMULARY DRUG (Magnesium Oxide 250 MG) PO SCH (09:00)
[2018-11-12 09:06] LABS: Calcium 9.3 mg/dL (8.4-10.2); Potassium 4.8 mmol/L (3.5-5.1)
--- NOTE | 2018-11-12 10:12 | P.CRDCN ---
History of Present Illness Consult date: 11/12/18 Chief complaint: Chest pain History of present illness: This is a pleasant 74-year-old female patient with a past medical history significant for hypertension and dyslipidemia presented to the emergency room complaining of chest discomfort. The patient started experiencing chest discomfort about 4 weeks ago. She was seen recently by her primary care physician who diagnosed the patient was pleurisy and send the patient to undergo a d-dimer which came in to be abnormal and subsequently a CTA of the chest showed no PE. The patient described the discomfort as a sharp kind of discomfort, over the left side of the chest, no radiation, but is clearly worse when she takes a deep breath and cough. The EKG showed sinus rhythm with ST segment elevation seems to be diffusely was and ST segment depression in aVR, finding a classical for pericarditis. The C-reactive protein came in to be abnormal as well. The patient denies any history of recent upper respiratory infection or contact was unable be sick. No history of pericarditis in the past. I am going to obtain an echocardiogram was Doppler to assess for pericardial effusion. Start the patient on colchicine. She was already started on ibuprofen. And keep the patient for additional 24 hours for possible discharge home tomorrow. Past Medical History Past Medical History: Cancer, Diabetes Mellitus, Hypertension, Osteoarthritis (OA), Renal Disease Additional Past Medical History / Comment(s): HX OF BASAL CELL SKIN CANCER, HEART MURMUR, decreased kidney function-stable per pt., plantar fascitis & heel spur History of Any Multi-Drug Resistant Organisms: None Reported Past Surgical History: Section, Joint Replacement, Orthopedic Surgery Additional Past Surgical History / Comment(s): X2, COLONOSCOPY, RIGHT PAROTID GLAND TUMOR, RIGHT CARPAL TUNNEL RELEASE, LEFT ROTATOR CUFF, MORTONS NEUROMA LEFT FOOT, right knee replaced. Submandibular abscess 1968 Past Anesthesia/Blood Transfusion Reactions: No Reported Reaction Additional Past Anesthesia/Blood Transfusion Reaction / Comment(s): HX OF BLOOD TRANSFUSION 1975-NO REACTION. STATES DILAUDID DROPPED HER BLOOD PRESSURE AFTER SURGERY. Smoking Status: Never smoker - Past Family History Mother Family Medical History: Asthma, COPD Additional Family Medical History / Comment(s): heart issues, GIB Father Family Medical History: Hypertension Medications and Allergies Home Medications Medication Instructions Recorded Confirmed Type Aspirin [Adult Low Dose Aspirin EC] 81 mg PO HS 07/01/16 11/11/18 History Calcium Carbonate/Vitamin D3 1 tab PO HS 07/01/16 11/11/18 History [Calcium 500-Vit D3 600 Tablet] Cholecalciferol [Vitamin D3] 2,000 unit PO BID 07/01/16 11/11/18 History Lisinopril [Zestril] 5 mg PO DAILY 07/01/16 11/11/18 History Multivitamins, Thera [Multivitamin] 1 tab PO DAILY 07/01/16 11/11/18 History Spironolactone [Aldactone] 25 mg PO BID 07/01/16 11/11/18 History Docusate [Colace] 100 mg PO DAILY 03/23/17 11/11/18 History Magnesium Oxide [Mag-Ox] 250 mg PO DAILY 03/23/17 11/11/18 History Allergies Allergy/AdvReac Type Severity Reaction Status Date / Time hydromorphone [From Dilaudid] AdvReac Severe Bloodpressure Verified 11/11/18 23:42 dropped after surgery, extending stay . meperidine [From Demerol] AdvReac Unknown Vomiting Verified 11/11/18 23:42 Physical Exam Vitals: Vital Signs Temp Pulse Pulse Resp BP BP Pulse Ox 11/12/18 08:00 98.0 F 87 18 91/62 96 11/12/18 03:43 97.9 F 84 16 92/58 96 11/12/18 03:24 16 11/12/18 00:19 16 11/11/18 23:56 98.0 F 96 16 96/58 97 11/11/18 23:08 98.8 F 11/11/18 22:40 95 15 97/68 95 11/11/18 22:20 96 22 97/29 95 11/11/18 22:10 100 23 101/65 91 L 11/11/18 22:00 96 22 101/65 93 L 11/11/18 21:50 96 14 101/65 93 L 11/11/18 21:40 94 21 101/65 91 L 11/11/18 21:30 96 15 101/65 93 L 11/11/18 21:20 114/67 11/11/18 21:10 114/67 11/11/18 21:00 16 107/59 96 11/11/18 20:20 104 H 17 138/73 95 11/11/18 20:18 96 11/11/18 20:17 109 H 16 138/73 96 Intake and Output 11/11/18 11/12/18 11/12/18 22:59 06:59 14:59 Other: Weight 83.007 kg - Constitutional General appearance: no acute distress - Respiratory Respiratory: bilateral: CTA - Cardiovascular Rhythm: regular Heart sounds: normal: S1, S2 (The morning) Results 11/12/18 07:56 11/12/18 07:56 Cardiac Enzymes 11/11/18 11/11/18 11/11/18 Range/Units 22:42 Unknown Unknown AST 25 (14-36) U/L Troponin I <0.012 <0.012 (0.000-0.034) ng/mL 11/12/18 Range/Units 07:56 AST (14-36) U/L Troponin I <0.012 (0.000-0.034) ng/mL Coagulation 11/11/18 Range/Units Unknown PT 11.4 (9.0-12.0) sec APTT 24.5 (22.0-30.0) sec Lipids 11/12/18 Range/Units 07:56 Triglycerides 58 (<150) mg/dL Cholesterol 109 (<200) mg/dL HDL Cholesterol 44 (40-60) mg/dL CBC 11/11/18 11/12/18 Range/Units Unknown 07:56 WBC 10.9 H 9.7 (3.8-10.6) k/uL RBC 4.99 4.15 (3.80-5.40) m/uL Hgb 14.5 12.4 (11.4-16.0) gm/dL Hct 45.3 38.2 (34.0-46.0) % Plt Count 358 340 (150-450) k/uL Comprehensive Metabolic Panel 11/11/18 11/12/18 Range/Units Unknown 07:56 Sodium 134 L 133 L (137-145) mmol/L Potassium 4.7 4.8 (3.5-5.1) mmol/L Chloride 99 100 (98-107) mmol/L Carbon Dioxide 24 25 (22-30) mmol/L BUN 21 H 24 H (7-17) mg/dL Creatinine 0.96 1.05 H (0.52-1.04) mg/dL Glucose 182 H 138 H (74-99) mg/dL Calcium 9.9 9.3 (8.4-10.2) mg/dL AST 25 (14-36) U/L ALT 27 (9-52) U/L Alkaline Phosphatase 94 (38-126) U/L Total Protein 7.6 (6.3-8.2) g/dL Albumin 4.2 (3.5-5.0) g/dL Current Medications Generic Name Dose Route Start Last Admin Trade Name Freq PRN Reason Stop Dose Admin Alprazolam 0.25 mg 11/11/18 23:13 Xanax PO TID PRN Anxiety Calcium Carbonate 1 each 11/12/18 21:00 Oscal 500+D PO HS [facility] Cholecalciferol 2,000 unit 11/12/18 09:00 Vitamin D3 (25 Mcg = 1000 Iu) PO BID [facility] Colchicine 0.6 mg 11/12/18 21:00 Colcrys PO BID [facility] Docusate Sodium 100 mg 11/12/18 09:00 Colace PO DAILY [facility] Ibuprofen 600 mg 11/11/18 22:45 11/11/18 23:13 Motrin PO 600 mg TID [facility] Administration Lisinopril 5 mg 11/12/18 09:00 Zestril PO DAILY [facility] Morphine Sulfate 4 mg 11/11/18 22:27 Morphine Sulfate (Inj) IVP Q4H PRN Pain Multivitamins 1 each 11/12/18 09:00 Theragran PO DAILY [facility] Ondansetron HCl 4 mg 11/11/18 22:24 Zofran IVP Q8H PRN Nausea Pantoprazole Sodium 40 mg 11/12/18 07:30 Protonix PO AC-BRKFST [facility] Spironolactone 25 mg 11/12/18 09:00 Aldactone PO BID [facility] Temazepam 15 mg 11/11/18 23:13 Restoril PO HS PRN Insomnia Intake and Output 11/11/18 11/12/18 11/12/18 22:59 06:59 14:59 Other: Weight 83.007 kg 11/12/18 07:56 11/12/18 07:56 Assessment and Plan Assessment: Assessment #1 pericarditis Plan #1 obtain an echocardiogram was Doppler to assess for pericardial effusion #2 start the patient on colchicine #3 agree to keep the patient on ibuprofen #4 DC aspirin #5 start PPI Thank you for allowing us participate in her care
[2018-11-12] MEDS: MULTIVITAMINS, THERA 1 EACH TAB PO SCH (10:15)
[2018-11-12] MEDS: IBUPROFEN 600 MG TAB PO SCH ×3 (10:15→21:04)
[2018-11-12] MEDS: DOCUSATE 100 MG CAP PO SCH (10:15)
[2018-11-12] MEDS: CHOLECALCIFEROL 1,000 UNIT TAB PO SCH ×2 (10:16→21:04)
[2018-11-12] MEDS: PANTOPRAZOLE 40 MG TABLET PO SCH (10:16)
[2018-11-12 11:52] LABS: Glucose,Whole Blood 187 mg/dL (75-99)
--- NOTE | 2018-11-12 12:20 | P.HPIM ---
History of Present Illness Chief Complaint: Chest pain This is a combined history and physical and discharge summary for the patient This is a very pleasant 74-year-old female with a past medical history significant for hypertension, hyperlipidemia comes in with above-mentioned complaint. The patient said that she's been having issues with her chest discomfort for some time now. She was seen by her primary care. Who diagnosed with pleurisy and she was given Zithromax. Symptoms improved somewhat but did not completely go away. She also had a CTA of the chest done to rule out a PE in October that his last month we did not show any acute abnormalities. Patient continued to have discomfort so she saw her sliver cutter who reviewed the EKG will and did not think that it's the heart attack. She was scheduled to have a stress test done next month. Yesterday the patient started having associated chest pain in the center of the chest going to the left side. It would get aggravated by deep breathing and coughing. Patient thus decided to come to the ER for further urology management. Patient otherwise does not complain of any fever or chills, she says that she is having pain in right upper quadrant going on for a few DAYS especially with walking and bending., nausea and vomiting, or diarrhea constipation, no tingling numbness of any extremities, no itch or rash. ER course-patient's vitals were stable. Labwork was done which showed platelets 340 sodium 1:30 potassium 4.8 B1 25 creatinine 1.05 GFR 53. Patient's EKG was done which showed diffuse ST elevation consistent with pericarditis. Patient was started on ibuprofen and admitted to the hospitalist service for further evaluation and management. Review of Systems All systems: negative Past Medical History Past Medical History: Cancer, Diabetes Mellitus, Hypertension, Osteoarthritis (OA), Renal Disease Additional Past Medical History / Comment(s): HX OF BASAL CELL SKIN CANCER, HEART MURMUR, decreased kidney function-stable per pt., plantar fascitis & heel spur History of Any Multi-Drug Resistant Organisms: None Reported Past Surgical History: Section, Joint Replacement, Orthopedic Surgery Additional Past Surgical History / Comment(s): X2, COLONOSCOPY, RIGHT PAROTID GLAND TUMOR, RIGHT CARPAL TUNNEL RELEASE, LEFT ROTATOR CUFF, MORTONS NEUROMA LEFT FOOT, right knee replaced. Submandibular abscess 1969 Past Anesthesia/Blood Transfusion Reactions: No Reported Reaction Additional Past Anesthesia/Blood Transfusion Reaction / Comment(s): HX OF BLOOD TRANSFUSION 1975-NO REACTION. STATES DILAUDID DROPPED HER BLOOD PRESSURE AFTER SURGERY. Smoking Status: Never smoker - Past Family History Mother Family Medical History: Asthma, COPD Additional Family Medical History / Comment(s): heart issues, GIB Father Family Medical History: Hypertension Medications and Allergies Home Medications Medication Instructions Recorded Confirmed Type Aspirin [Adult Low Dose Aspirin EC] 81 mg PO HS 07/01/16 11/11/18 History Calcium Carbonate/Vitamin D3 1 tab PO HS 07/01/16 11/11/18 History [Calcium 500-Vit D3 600 Tablet] Cholecalciferol [Vitamin D3] 2,000 unit PO BID 07/01/16 11/11/18 History Lisinopril [Zestril] 5 mg PO DAILY 07/01/16 11/11/18 History Multivitamins, Thera [Multivitamin] 1 tab PO DAILY 07/01/16 11/11/18 History Spironolactone [Aldactone] 25 mg PO BID 07/01/16 11/11/18 History Docusate [Colace] 100 mg PO DAILY 03/23/17 11/11/18 History Magnesium Oxide [Mag-Ox] 250 mg PO DAILY 03/23/17 11/11/18 History Allergies Allergy/AdvReac Type Severity Reaction Status Date / Time hydromorphone [From Dilaudid] AdvReac Severe Bloodpressure Verified 11/11/18 23:42 dropped after surgery, extending stay . meperidine [From Demerol] AdvReac Unknown Vomiting Verified 11/11/18 23:42 Physical Exam Vitals: Vital Signs Temp Pulse Pulse Resp BP BP Pulse Ox 11/12/18 12:00 98.5 F 93 16 101/64 96 11/12/18 08:00 98.0 F 87 18 91/62 96 11/12/18 03:43 97.9 F 84 16 92/58 96 11/12/18 03:24 16 11/12/18 00:19 16 11/11/18 23:56 98.0 F 96 16 96/58 97 11/11/18 23:08 98.8 F 11/11/18 22:40 95 15 97/68 95 11/11/18 22:20 96 22 97/29 95 11/11/18 22:10 100 23 101/65 91 L 05/11/19 22:00 96 22 101/65 93 L 11/11/18 21:50 96 14 101/65 93 L 11/11/18 21:40 94 21 101/65 91 L 11/11/18 21:30 96 15 101/65 93 L 11/11/18 21:20 114/67 11/11/18 21:10 114/67 11/11/18 21:00 16 107/59 96 11/11/18 20:20 104 H 17 138/73 95 11/11/18 20:18 96 11/11/18 20:17 109 H 16 138/73 96 Intake and Output 11/11/18 11/12/18 11/12/18 22:59 06:59 14:59 Other: Weight 83.007 kg On exam, alert and oriented x3. HEENT: Conjunctivae normal. eyes normal. NECK: No JVD. No thyroid enlargement. No LNs CARDIOVASCULAR: S1-S2 positive RESPIRATION: Breath sounds diminished in the bases. No rhonchi or crackles. No bronchial breathing. ABDOMEN: Soft, nontender . No guarding. no masses palpable. No ascites, No hepatosplenomegaly.Bowel sounds heard. LEGS: No edema. no swelling NERVOUS SYSTEM: Cranial N 2-12 grossly normal. Moves all 4 limbs. No focal deficits. No sensory deficit. No signs of cerebellar dysfucntion. Skin: no ulcer no rash Joints: No active swelling. No inflammation. Lymphatic system. No LN neck axilla or groin. Results CBC & Chem 7: 11/12/18 07:56 11/12/18 07:56 Labs: Abnormal Lab Results - Last 24 Hours (Table) 11/11/18 11/11/18 11/11/18 Range/Units 23:55 23:55 Unknown WBC 10.9 H (3.8-10.6) k/uL Neutrophils # 9.5 H (1.3-7.7) k/uL Lymphocytes # 0.5 L (1.0-4.8) k/uL Monocytes # (0-1.0) k/uL ESR 47 H (0-20) mm/hr D-Dimer (<0.60) mg/L FEU Sodium (137-145) mmol/L BUN (7-17) mg/dL Creatinine (0.52-1.04) mg/dL Glucose (74-99) mg/dL POC Glucose (mg/dL) (75-99) mg/dL C-Reactive Protein 157.3 H (<10.0) mg/L 11/11/18 11/11/18 11/12/18 Range/Units Unknown Unknown 06:49 WBC (3.8-10.6) k/uL Neutrophils # (1.3-7.7) k/uL Lymphocytes # (1.0-4.8) k/uL Monocytes # (0-1.0) k/uL ESR (0-20) mm/hr D-Dimer 4.11 H (<0.60) mg/L FEU Sodium 134 L (137-145) mmol/L BUN 21 H (7-17) mg/dL Creatinine (0.52-1.04) mg/dL Glucose 182 H (74-99) mg/dL POC Glucose (mg/dL) 150 H (75-99) mg/dL C-Reactive Protein (<10.0) mg/L 11/12/18 11/12/18 11/12/18 Range/Units 07:56 07:56 11:48 WBC (3.8-10.6) k/uL Neutrophils # (1.3-7.7) k/uL Lymphocytes # 0.9 L (1.0-4.8) k/uL Monocytes # 1.2 H (0-1.0) k/uL ESR (0-20) mm/hr D-Dimer (<0.60) mg/L FEU Sodium 133 L (137-145) mmol/L BUN 24 H (7-17) mg/dL Creatinine 1.05 H (0.52-1.04) mg/dL Glucose 138 H (74-99) mg/dL POC Glucose (mg/dL) 187 H (75-99) mg/dL C-Reactive Protein (<10.0) mg/L Thrombosis Risk Factor Assmnt - Choose All That Apply Each Risk Factor Represents 2 Points: Age 61-74 years Thrombosis Risk Factor Assessment Total Risk Factor Score: 2 Thrombosis Risk Factor Assessment Level: Low Risk Assessment and Plan Assessment: - Pericarditis - Chest pain probably secondary to above - Hypertension - Hyperlipidemia - Diabetes - History of C KD - History of arthritis Plan - We'll admit the patient to observation - Patient was started on colchicine and ibuprofen will continue that - Awaiting cardiology for the recommendation - Patient was also complaining of pain in her right upper quadrant. We'll get ultrasound of her right upper quadrant - Patient can be discharged tomorrow depending upon cardiology recommendation and depending upon the echo and the ultrasound of the abdomen finding - DVT and GI prophylaxis - We'll order for lab work in the morning - Expected length of stay more than 2 midnights - Patient is full code Time with Patient: Greater than 30
[2018-11-12] MEDS: LISINOPRIL 5 MG TAB PO SCH (16:16)
[2018-11-12] MEDS: SPIRONOLACTONE 25 MG TAB PO SCH ×2 (16:16→19:54)
[2018-11-12 16:41] LABS: Glucose,Whole Blood 146 mg/dL (75-99)
[2018-11-12 19:46] LABS: Glucose,Whole Blood 162 mg/dL (75-99)
[2018-11-12] MEDS ORDERED: ASPIRIN 81 MG PO SCH (21:00)
[2018-11-12] MEDS: CALCIUM CARB-VIT D 500MG-200UN 1 EACH TAB PO SCH (21:05)
[2018-11-12] MEDS: COLCHICINE 0.6 MG EACH PO SCH (21:05)
[2018-11-13 05:52] LABS: HCT 37.4 % (34.0-46.0); MCH 29.3 pg (25.0-35.0); MCV 91.6 fL (80.0-100.0); Mean Platelet Volume 6.6; Platelet Count 332 k/uL (150-450); RBC 4.09 m/uL (3.80-5.40); RDW 13.7 % (11.5-15.5); WBC 8.3 k/uL (3.8-10.6)
[2018-11-13 05:59] LABS: Calcium 9.3 mg/dL (8.4-10.2); Potassium 4.7 mmol/L (3.5-5.1)
[2018-11-13 06:49] LABS: Glucose,Whole Blood 143 mg/dL (75-99)
--- NOTE | 2018-11-13 08:20 | US ---
EXAMINATION TYPE: US abdomen limited DATE OF EXAM: 11/13/2018 COMPARISON: NONE CLINICAL HISTORY: Right upper quadrant pain. epigastric pain EXAM MEASUREMENTS: Liver Length: 13.6 cm Gallbladder Wall: 0.3 cm CBD: 0.5 cm Right Kidney: 9.2 x 5.3 x 5.0 cm Pancreas: Obscured due to bowel gas Liver: intercostal imaging due to gas and therefore limited. Gallbladder: multiple, non mobile stone seen near neck portion of GB Evidence for sonographic Glover's sign: no CBD: wnl Right Kidney: wnl IMPRESSION: 1. Cholelithiasis. 2. Limited assessment of the liver and pancreas.
[2018-11-13] MEDS: IBUPROFEN 600 MG TAB PO SCH ×3 (11:46→21:24)
[2018-11-13] MEDS: PANTOPRAZOLE 40 MG TABLET PO SCH (11:46)
[2018-11-13] MEDS: COLCHICINE 0.6 MG EACH PO SCH ×2 (11:47→21:23)
[2018-11-13] MEDS: LISINOPRIL 5 MG TAB PO SCH (11:53)
[2018-11-13] MEDS: SPIRONOLACTONE 25 MG TAB PO SCH ×2 (11:53→21:24)
[2018-11-13 12:17] LABS: Glucose,Whole Blood 133 mg/dL (75-99)
--- NOTE | 2018-11-13 12:47 | ECHOF ---
Referral Reason:chest pain, concern for pericarditis MEASUREMENTS -------- HEIGHT: 154.9 cm WEIGHT: 83.0 kg BP: 105/5 IVSd: 0.9 cm (0.6 - 1.1) LVIDd: 3.4 cm (3.9 - 5.3) LVPWd: 0.9 cm (0.6 - 1.1) IVSs: 1.3 cm LVIDs: 2.0 cm LVPWs: 1.2 cm LAESV Index (A-L): 22.59 ml/m Ao Diam: 2.8 cm (2.0 - 3.7) AV Cusp: 1.8 cm (1.5 - 2.6) LA Diam: 3.3 cm (2.7 - 3.8) MV EXCURSION: 12.842 mm (> 18.000) MV EF SLOPE: 57 mm/s (70 - 150) EPSS: 0.5 cm MV E Tony: 0.78 m/s MV DecT: 171 ms MV A Tony: 0.97 m/s MV E/A Ratio: 0.80 AV maxP.61 mmHg AV meanP.07 mmHg AR PHT: 129 ms RAP: 5.00 mmHg RVSP: 26.91 mmHg FINDINGS -------- Sinus rhythm. This was a technically good study. The left ventricular size is normal. Overall left ventricular systolic function is normal with, an EF between 55 - 60 %. Sigmoid shaped septum with focal hypertrophy of the basal septum. The remaini ng wall thickness is normal. The right ventricle is normal in size. Normal LA size by volume 22+/-6 ml/m2. The right atrial size is normal. Interatrial and interventricular septum intact. Aortic valve is trileaflet and is mildly thickened. Trace amount of aortic regurgitation. Peak/m toribio gradient across the Aortic Valve is 13.61mmHg / 7.07mmHg. Mild mitral regurgitation is present. Mild tricuspid regurgitation present. The right ventricular systolic pressure, as measured by Doppl er, is 26.91mmHg. There is no pulmonic regurgitation present. The aortic root size is normal. Normal inferior vena cava with normal inspiratory collapse consistent with estimated right atrial pre ssure of 5 mmHg. There is a small, generalized pericardial effusion present. CONCLUSIONS -------- 1. Sinus rhythm. 2. This was a technically good study. 3. The left ventricular size is normal. 4. Overall left ventricular systolic function is normal with, an EF between 55 - 60 %. 5. Sigmoid shaped septum with focal hypertrophy of the basal septum. The remaining wall thickness is normal. 6. The right ventricle is normal in size. 7. Normal LA size by volume 22+/-6 ml/m2. 8. The right atrial size is normal. 9. Interatrial and interventricular septum intact. 10. Aortic valve is trileaflet and is mildly thickened. 11. Trace amount of aortic regurgitation. 12. Peak/mean gradient across the Aortic Valve is 13.61mmHg / 7.07mmHg. 13. Mild mitral regurgitation is present. 14. Mild tricuspid regurgitation present. 15. The right ventricular systolic pressure, as measured by Doppler, is 26.91mmHg. 16. There is no pulmonic regurgitation present. 17. The aortic root size is normal. 18. Normal inferior vena cava with normal inspiratory collapse consistent with estimated right atrial pressure of 5 mmHg. 19. There is a small, generalized pericardial effusion present. EDITORIAL CLERK: Dorys Hinkle RDCS
[2018-11-13 13:35] LABS: Total Bilirubin 0.7 mg/dL (0.2-1.3)
--- NOTE | 2018-11-13 13:40 | P.GSCN ---
History of Present Illness Consult date: 11/13/18 Reason for Consult: gallstones Requesting physician: Jj Null History of present illness: CHIEF COMPLAINT: gallstones HISTORY OF PRESENT ILLNESS: 73-year-old female was admitted to the hospital secondary to pericarditis. Abdominal ultrasound was obtained revealing gallstones. General surgery was consulted for further evaluation. Patient reports right upper quadrant pain yesterday but denies pain today. She denies nausea or vomiting. Denies intolerance to fat or greasy foods. PAST MEDICAL HISTORY: See list. PAST SURGICAL HISTORY: See list. SOCIAL HISTORY: No illicit drug use. REVIEW OF SYSTEMS: CONSTITUTIONAL: Denies fever or chills. HEENT: Denies blurred vision, vision changes, or eye pain. Denies hemoptysis CARDIOVASCULAR: Denies chest pain or pressure. RESPIRATORY: No shortness of breath. GASTROINTESTINAL: Refer to HPI for pertinent findings HEMATOLOGIC: Denies bleeding disorders. GENITOURINARY: Denies any blood in urine. SKIN: Denies pruitis. Denies rash. PHYSICAL EXAM: VITAL SIGNS: Reviewed. GENERAL: Well-developed in no acute distress. HEENT: No sclera icterus. Extraocular movements grossly intact. Moist buccal mucosa. Head is atraumatic, normocephalic. ABDOMEN: Soft. Nondistended. Nontender. NEUROLOGIC: Alert and oriented. Cranial nerves II through XII grossly intact. ASSESSMENT: 1. Cholelithiasis PLAN: No surgical intervention recommended at this time. Check bilirubin, AST, ALT, amylase, lipase Patient stable for discharge from surgical standpoint. Patient would like to follow up with Dr. Pryor outpatient. Nurse practitioner note has been reviewed by physician. Signing provider agrees with the documented findings, assessment, and plan of care. Past Medical History Past Medical History: Cancer, Diabetes Mellitus, Hypertension, Osteoarthritis (OA), Renal Disease Additional Past Medical History / Comment(s): HX OF BASAL CELL SKIN CANCER, HEART MURMUR, decreased kidney function-stable per pt., plantar fascitis & heel spur History of Any Multi-Drug Resistant Organisms: None Reported Past Surgical History: Section, Joint Replacement, Orthopedic Surgery Additional Past Surgical History / Comment(s): X2, COLONOSCOPY, RIGHT PAROTID GLAND TUMOR, RIGHT CARPAL TUNNEL RELEASE, LEFT ROTATOR CUFF, MORTONS NEUROMA LEFT FOOT, right knee replaced. Submandibular abscess 1969 Past Anesthesia/Blood Transfusion Reactions: No Reported Reaction Additional Past Anesthesia/Blood Transfusion Reaction / Comm: HX OF BLOOD TRANSFUSION 1975-NO REACTION. STATES DILAUDID DROPPED HER BLOOD PRESSURE AFTER SURGERY. Smoking Status: Never smoker - Past Family History Mother Family Medical History: Asthma, COPD Additional Family Medical History / Comment(s): heart issues, GIB Father Family Medical History: Hypertension Medications and Allergies Home Medications Medication Instructions Recorded Confirmed Type Aspirin [Adult Low Dose Aspirin EC] 81 mg PO HS 07/01/16 11/11/18 History Calcium Carbonate/Vitamin D3 1 tab PO HS 07/01/16 11/11/18 History [Calcium 500-Vit D3 600 Tablet] Cholecalciferol [Vitamin D3] 2,000 unit PO BID 07/01/16 11/11/18 History Lisinopril [Zestril] 5 mg PO DAILY 07/01/16 11/11/18 History Multivitamins, Thera [Multivitamin] 1 tab PO DAILY 07/01/16 11/11/18 History Spironolactone [Aldactone] 25 mg PO BID 07/01/16 11/11/18 History Docusate [Colace] 100 mg PO DAILY 03/23/17 11/11/18 History Magnesium Oxide [Mag-Ox] 250 mg PO DAILY 03/23/17 11/11/18 History Allergies Allergy/AdvReac Type Severity Reaction Status Date / Time hydromorphone [From Dilaudid] AdvReac Severe Bloodpressure Verified 11/11/18 23:42 dropped after surgery, extending stay . meperidine [From Demerol] AdvReac Unknown Vomiting Verified 11/11/18 23:42 Surgical - Exam Vital Signs Pulse Resp BP Pulse Ox 109 H 16 138/73 96 11/11/18 20:17 11/11/18 20:17 11/11/18 20:17 11/11/18 20:17 Results - Labs 11/13/18 05:33 11/13/18 05:33 Abnormal Lab Results - Last 24 Hours (Table) 11/12/18 11/12/18 11/13/18 Range/Units 16:38 19:44 05:33 Sodium 134 L (137-145) mmol/L BUN 22 H (7-17) mg/dL Glucose 145 H (74-99) mg/dL POC Glucose (mg/dL) 146 H 162 H (75-99) mg/dL 11/13/18 11/13/18 Range/Units 06:46 12:14 Sodium (137-145) mmol/L BUN (7-17) mg/dL Glucose (74-99) mg/dL POC Glucose (mg/dL) 143 H 133 H (75-99) mg/dL Diabetes panel 11/13/18 11/13/18 Range/Units 05:33 05:33 Sodium 134 L (137-145) mmol/L Potassium 4.7 (3.5-5.1) mmol/L Chloride 106 (98-107) mmol/L Carbon Dioxide 23 (22-30) mmol/L BUN 22 H (7-17) mg/dL Creatinine 0.85 (0.52-1.04) mg/dL Glucose 145 H (74-99) mg/dL Calcium 9.3 (8.4-10.2) mg/dL AST 33 (14-36) U/L ALT 38 (9-52) U/L Calcium panel 11/13/18 Range/Units 05:33 Calcium 9.3 (8.4-10.2) mg/dL Pituitary panel 11/13/18 Range/Units 05:33 Sodium 134 L (137-145) mmol/L Potassium 4.7 (3.5-5.1) mmol/L Chloride 106 (98-107) mmol/L Carbon Dioxide 23 (22-30) mmol/L BUN 22 H (7-17) mg/dL Creatinine 0.85 (0.52-1.04) mg/dL Glucose 145 H (74-99) mg/dL Calcium 9.3 (8.4-10.2) mg/dL Adrenal panel 11/13/18 11/13/18 Range/Units 05:33 05:33 Sodium 134 L (137-145) mmol/L Potassium 4.7 (3.5-5.1) mmol/L Chloride 106 (98-107) mmol/L Carbon Dioxide 23 (22-30) mmol/L BUN 22 H (7-17) mg/dL Creatinine 0.85 (0.52-1.04) mg/dL Glucose 145 H (74-99) mg/dL Calcium 9.3 (8.4-10.2) mg/dL Total Bilirubin 0.7 (0.2-1.3) mg/dL AST 33 (14-36) U/L ALT 38 (9-52) U/L
--- NOTE | 2018-11-13 13:53 | P.PN ---
Subjective This is a pleasant 73-year-old female past medical history significant for diabetes mellitus and hypertension. She follows in the office with Dr. Harvey. Most recent echocardiogram obtained in the office in 2017 reveals preserved left ventricular systolic function with ejection fraction 55%, moderate concentric LV hypertrophy, interventricular septum is abnormally thickened but does not result in an outflow obstruction, mild asymmetric septal hypertrophy. Repeat echocardiogram obtained this morning reveals reserved LV systolic function with ejection fraction 55-60%, sigmoid shaped septum with focal hypertrophy of the basal septum, mild aortic stenosis with a mean gradient of 7 mmHg, small generalized pericardial effusion, mild mitral regurgitation and mild tricuspid regurgitation. She is currently being treated for her acute pericarditis and is maintained on ibuprofen and colchicine. She continues to describe pleuritic chest discomfort in the midsternal region worse with deep inspiration or movement of her torso. Blood pressure 103/60 heart rate 91 afebrile maintaining oxygen saturation on room air. Laboratory data reviewed, sodium 134, potassium 4.7, creatinine 0.85. She underwent an ultrasound of her abdomen this morning revealing multiple gallstones. GENERAL: Well-appearing, well-nourished and in no acute distress. NECK: Supple without JVD or thyromegaly. LUNGS: Breath sounds clear to auscultation bilaterally. Respiration equal and unlabored. No wheezes, rales or rhonchi. HEART: Regular rate and rhythm with faint systolic ejection murmur at the base, no rubs or gallops. S1 and S2 heard. EXTREMITIES: Normal range of motion, no edema. No clubbing or cyanosis. Peripheral pulses intact. ASSESSMENT Acute pericarditis History of non-obstructive hypertrophic cardiomyopathy Hypertension Diabetes mellitus PLAN Check for coxsackie virus. Continue colchicine and ibuprofen. Nurse Practitioner note has been reviewed, I agree with a documented findings and plan of care. Patient was seen and examined. Objective - Vital Signs Vital signs: Vital Signs Temp 98.9 F 11/13/18 12:00 Pulse 91 11/13/18 12:00 Resp 17 11/13/18 12:00 BP 103/60 11/13/18 12:00 Pulse Ox 98 11/13/18 12:00 - Labs CBC & Chem 7: 11/13/18 05:33 11/13/18 05:33 Labs: Abnormal Lab Results - Last 24 Hours (Table) 11/12/18 11/12/18 11/13/18 Range/Units 16:38 19:44 05:33 Sodium 134 L (137-145) mmol/L BUN 22 H (7-17) mg/dL Glucose 145 H (74-99) mg/dL POC Glucose (mg/dL) 146 H 162 H (75-99) mg/dL 11/13/18 11/13/18 Range/Units 06:46 12:14 Sodium (137-145) mmol/L BUN (7-17) mg/dL Glucose (74-99) mg/dL POC Glucose (mg/dL) 143 H 133 H (75-99) mg/dL
[2018-11-13] MEDS: DOCUSATE 100 MG CAP PO SCH (14:03)
[2018-11-13] MEDS: MULTIVITAMINS, THERA 1 EACH TAB PO SCH (14:03)
[2018-11-13] MEDS: CHOLECALCIFEROL 1,000 UNIT TAB PO SCH ×2 (14:03→21:24)
[2018-11-13 16:38] LABS: Glucose,Whole Blood 126 mg/dL (75-99)
[2018-11-13 20:35] VITALS: RESP 18
[2018-11-13 20:56] LABS: Glucose,Whole Blood 127 mg/dL (75-99)
[2018-11-13] MEDS: CALCIUM CARB-VIT D 500MG-200UN 1 EACH TAB PO SCH (21:23)
[2018-11-13] MEDS ORDERED: METOPROLOL TARTRATE 50 MG TAB PO STA (23:15)
--- NOTE | 2018-11-13 23:22 | P.PN ---
Subjective Progress Note Date: 11/13/18 Principal diagnosis: Acute pericarditis and small pericardial effusion This is a very pleasant 74-year-old female with a past medical history significant for hypertension, hyperlipidemia comes in with above-mentioned complaint. The patient said that she's been having issues with her chest discomfort for some time now. She was seen by her primary care. Who diagnosed with pleurisy and she was given Zithromax. Symptoms improved somewhat but did not completely go away. She also had a CTA of the chest done to rule out a PE in October that his last month we did not show any acute abnormalities. Patient continued to have discomfort so she saw her orientor who reviewed the EKG will and did not think that it's the heart attack. She was scheduled to have a stress test done next month. Yesterday the patient started having associated chest pain in the center of the chest going to the left side. It would get aggravated by deep breathing and coughing. Patient thus decided to come to the ER for further urology management. Patient otherwise does not complain of any fever or chills, she says that she is having pain in right upper quadrant going on for a few DAYS especially with walking and bending., nausea and vomiting, or diarrhea constipation, no tingling numbness of any extremities, no itch or rash. ER course-patient's vitals were stable. Labwork was done which showed platelets 340 sodium 1:30 potassium 4.8 B1 25 creatinine 1.05 GFR 53. Patient's EKG was done which showed diffuse ST elevation consistent with pericarditis. Patient was started on ibuprofen and admitted to the hospitalist service for further evaluation and management. 11 13 2018 Patient did have some improvement and pleuritic chest pain. Still having some pain with cough. Patient is being continued on Colchicin and Motrin as per cardiology recommendations. Continue to monitor for another 24 hours for more clinical improvement. No complaints of shortness of breath. No nausea vomiting or abdominal pain. Tolerating oral diet. Ultrasound of the right upper quadrant showed gallstones. Gen. surgery recommends outpatient follow-up to evaluate for cholecystectomy. Current medications reviewed. Objective - Vital Signs Vital signs: Vital Signs Temp 98.8 F 11/13/18 20:00 Pulse 88 11/13/18 20:00 Resp 18 11/13/18 20:00 BP 114/63 11/13/18 20:00 Pulse Ox 96 11/13/18 20:00 Intake & Output 11/13/18 11/13/18 11/14/18 06:59 18:59 06:59 Intake Total 480 Balance 480 Intake: Oral 480 Other: # Voids 4 - Exam PHYSICAL EXAMINATION: Patient is lying in the bed comfortably, no acute distress, awake alert and oriented.. HEENT: Normocephalic. Neck is supple. Pupils reactive. Nostrils clear. Oral cavity is moist. Ears reveal no drainage. Neck reveals no JVD, carotid bruits, or thyromegaly. CHEST EXAMINATION: Trachea is central. Symmetrical expansion. Lung garcia clear to auscultation and percussion. CARDIAC: Normal S1, S2 with no gallops. No murmurs ABDOMEN: Soft. Bowel sounds normal. No organomegaly. No abdominal bruits. Extremities: reveal no edema. No clubbing or cyanosis Neurologically awake, alert, oriented x3 with well-coordinated movements. No focal deficits noted Skin: No rash or skin lesions. Psychiatric: Coperative. Nonsuicidal Musculoskeletal: No joint swelling or deformity. Normal range of motion. - Labs CBC & Chem 7: 11/13/18 05:33 11/13/18 05:33 Labs: Abnormal Lab Results - Last 24 Hours (Table) 11/13/18 11/13/18 11/13/18 Range/Units 05:33 06:46 12:14 Sodium 134 L (137-145) mmol/L BUN 22 H (7-17) mg/dL Glucose 145 H (74-99) mg/dL POC Glucose (mg/dL) 143 H 133 H (75-99) mg/dL 11/13/18 Range/Units 16:33 Sodium (137-145) mmol/L BUN (7-17) mg/dL Glucose (74-99) mg/dL POC Glucose (mg/dL) 126 H (75-99) mg/dL Assessment and Plan Assessment: - Acute Pericarditis and small pericardial effusion. - Chest pain probably secondary to above - Gallstones - Hypertension - Hyperlipidemia - Diabetes - History of C KD - History of arthritis Plan - Continue with telemetry monitoring, serial EKG. Troponin 3 negative. - Patient was started on colchicine and ibuprofen . TSH and Coxsackie viral ABS was ordered. CRP level 157- elevated. - Cardiology is following. - DVT and GI prophylaxis - Expected length of stay more than 2 midnights. Possible discharge tomorrow. - Patient is full code Time with Patient: Greater than 30
[2018-11-14] MEDS: PANTOPRAZOLE 40 MG TABLET PO SCH (06:56)
[2018-11-14] MEDS: DOCUSATE 100 MG CAP PO SCH (09:22)
[2018-11-14] MEDS: IBUPROFEN 600 MG TAB PO SCH ×2 (09:23→17:54)
[2018-11-14] MEDS: LISINOPRIL 5 MG TAB PO SCH (09:23)
[2018-11-14] MEDS: CHOLECALCIFEROL 1,000 UNIT TAB PO SCH (09:23)
[2018-11-14] MEDS: SPIRONOLACTONE 25 MG TAB PO SCH (09:25)
[2018-11-14] MEDS: MULTIVITAMINS, THERA 1 EACH TAB PO SCH (09:25)
[2018-11-14] MEDS: COLCHICINE 0.6 MG EACH PO SCH (09:40)
--- NOTE | 2018-11-14 12:47 | P.PN ---
Subjective Progress Note Date: 11/14/18 CHIEF COMPLAINT: gallstones HISTORY OF PRESENT ILLNESS: Patient examined at the bedside. Denies right upper quadrant pain. Denies nausea or vomiting. Tolerating diet. PHYSICAL EXAM: VITAL SIGNS: Reviewed. GENERAL: Well-developed in no acute distress. HEENT: No sclera icterus. Extraocular movements grossly intact. Moist buccal mucosa. Head is atraumatic, normocephalic. ABDOMEN: Soft. Nondistended. Nontender. NEUROLOGIC: Alert and oriented. Cranial nerves II through XII grossly intact. ASSESSMENT: 1. Cholelithiasis PLAN: No surgical intervention recommended at this time. Patient stable for discharge from surgical standpoint. Patient would like to follow up with Dr. Pryor outpatient. Nurse practitioner note has been reviewed by physician. Signing provider agrees with the documented findings, assessment, and plan of care. Objective - Vital Signs Vital signs: Vital Signs Temp 98.4 F 11/14/18 08:00 Pulse 84 11/14/18 08:00 Resp 18 11/14/18 08:00 BP 129/75 11/14/18 08:00 Pulse Ox 95 11/14/18 08:00 Intake & Output 11/13/18 11/14/18 11/14/18 18:59 06:59 18:59 Intake Total 480 240 Balance 480 240 Weight 83.4 kg Intake: Oral 480 240 Other: # Voids 4 1 - Labs CBC & Chem 7: 11/13/18 05:33 11/13/18 05:33 Labs: Abnormal Lab Results - Last 24 Hours (Table) 11/13/18 11/13/18 11/13/18 Range/Units 12:14 16:33 20:56 POC Glucose (mg/dL) 133 H 126 H 127 H (75-99) mg/dL
--- NOTE | 2018-11-14 15:44 | P.PN ---
Subjective Progress Note Date: 11/14/18 This is a pleasant 74-year-old female patient with a past medical history significant for hypertension and dyslipidemia presented to the emergency room complaining of chest discomfort. The patient started experiencing chest discomfort about 4 weeks ago. She was seen recently by her primary care physician who diagnosed the patient was pleurisy and send the patient to undergo a d-dimer which came in to be abnormal and subsequently a CTA of the chest showed no PE. The patient described the discomfort as a sharp kind of discomfort, over the left side of the chest, no radiation, but is clearly worse when she takes a deep breath and cough. The EKG showed sinus rhythm with ST segment elevation seems to be diffusely was and ST segment depression in aVR, finding a classical for pericarditis. The C-reactive protein came in to be abnormal as well. Patient had been initiated on treatment for pericarditis and overall is doing considerably better, still has some chest discomfort with taking a deep breath. She was transferred to the cardiac unit last evening because of an episode of atrial fibrillation on the monitor. It was a brief episode, not caught on EKG. Because of the single episode, in relation to the pericarditis, it this time we will not put the patient on any anticoagulation. Dr. Jon did speak with the patient today explaining that if she has any further episodes that she may require anticoagulation down the road. Today she feels well, as mentioned, she does have some discomfort with deep breathing today. Let pressure 134/70 with a heart rate of 80 and temperature 98.4, 95% on room air. Objective - Vital Signs Vital signs: Vital Signs Temp 98.4 F 11/14/18 12:00 Pulse 84 11/14/18 12:00 Resp 18 11/14/18 12:00 BP 134/71 11/14/18 12:00 Pulse Ox 95 11/14/18 12:00 Intake & Output 11/13/18 11/14/18 11/14/18 18:59 06:59 18:59 Intake Total 480 600 Balance 480 600 Weight 83.4 kg Intake: Oral 480 600 Other: # Voids 4 1 2 - Exam GENERAL: Well-appearing, well-nourished and in no acute distress. NECK: Supple without JVD or thyromegaly. LUNGS: Breath sounds clear to auscultation bilaterally. Respiration equal and unlabored. No wheezes, rales or rhonchi. HEART: Regular rate and rhythm with faint systolic ejection murmur at the base, no rubs or gallops. S1 and S2 heard. EXTREMITIES: Normal range of motion, no edema. No clubbing or cyanosis. Peripheral pulses intact. - Labs CBC & Chem 7: 11/13/18 05:33 11/13/18 05:33 Labs: Abnormal Lab Results - Last 24 Hours (Table) 11/13/18 11/13/18 Range/Units 16:33 20:56 POC Glucose (mg/dL) 126 H 127 H (75-99) mg/dL Assessment and Plan Plan: Assessment and plan #1 Acute pericarditis #2 History of non-obstructive hypertrophic cardiomyopathy #3 Hypertension #4 Diabetes mellitus #5 episode of atrial fibrillation Plan Because the patient had 1 brief episode of atrial fibrillation and converted back to normal sinus rhythm, in the setting of pericarditis, at this time we do not recommend any anticoagulation. From our perspective she may be able to be discharged home today and we will make her a follow-up appointment in the office with Dr. Kong's post discharge. DNP note has been reviewed, I agree with a documented findings and plan of care. Patient was seen and examined.
--- NOTE | 2018-11-14 16:41 | CDI ---
Documentation Clarification Form Date: 11/14/2018 4:28:54 PM From: Eliana Elena RN, CCDS Admit Date: 11/13/2018 3:52:00 PM Patient Name: Erika Fall Visit Number: [id number] Discharge Date: ATTENTION: The Clinical Documentation Specialists (CDI) and [facility] Coding Staff appreciate your assistance in clarifying documentation. Please respond to the clarification below the line at the bottom and electronically sign. The CDI & [facility] Coding staff will review the response and follow-up if needed. Please note: Queries are made part of the Legal Health Record. If you have any questions, please contact the author of this message via ITS. Dr. Eyal Smith Patient was admitted with past medical history of renal disease per H/P and ongoing progress notes. History/Risk Factors: Hypertension, Diabetes Mellitus, CKD, Clinical Indicators: 73-year-old female who present with complaints of chest pain. She has a history of renal disease. Patient denies nausea, vomiting or diarrhea. Admission: BUN 21, CR 0. 96 GFR 59 11/12/2018: BUN 24, CR 1.05, GFR 53 Current BUN 22, CR 0.85 GFR: 69 Patients Baseline BUN/CR/GFR: Not noted Treatment: IVF bolus Monitor Labs, CBC, Lytes In order to capture the severity of condition, please clarify if the condition signifies: CKD Stage 1 (GFR > 90) CKD Stage 2 (GFR 60-89) CKD Stage 3 (GFR 30-59) CKD Stage 4 (GFR 15-29) CKD Stage 5 (GFR <15) Other, please specify Unable to determine (Last Revision: October 2017) Chronic kidney disease stage III MTDD
[2018-11-14 16:46] VITALS: BP 149/90; PULSE 112; TEMP 97.5
== END 2018-11-14 18:05 | disposition home or self-care (01) | DRG 316 ==
LOC: EC 20:05 → 1SOBS 22:21 → OBSVTOIN 11-13 15:52 → 3SCARD 11-14 00:40
PROVIDERS: ADMIT Hospitalist; ATTEND Hospitalist
DX: I30.9 Acute pericarditis, unspecified (principal); E78.5 Hyperlipidemia, unspecified; M19.90 Unspecified osteoarthritis, unspecified site; I48.91 Unspecified atrial fibrillation; E11.22 Type 2 diabetes mellitus with diabetic chronic kidney disease; K80.80 Other cholelithiasis without obstruction; I12.9 Hypertensive chronic kidney disease with stage 1 through stage 4 chronic kidney disease, or unspecified chronic kidney disease; N18.3 Chronic kidney disease, stage 3 (moderate); Z85.828 Personal history of other malignant neoplasm of skin; Z82.49 Family history of ischemic heart disease and other diseases of the circulatory system; Z82.5 Family history of asthma and other chronic lower respiratory diseases; Z79.82 Long term (current) use of aspirin; Z79.899 Other long term (current) drug therapy; Z88.5 Allergy status to narcotic agent
CPT/HCPCS: 36415; 71046; 71275; 76705; 80048; 80053; 80061; 82150; 82247; 83690; 83735; 83880; 84443; 84450; 84460; 84484; 85025; 85027; 85379; 85610; 85652; 85730; 86140; 86658; 93005; 93306; 94760; 96361; 96374; 96376; 99285

== ENCOUNTER 2020-03-14 08:49 | Day surgery (SDC) | payer MEDICARE ==
[2020-03-07 18:20] VITALS: BMI 33.4
[~2020-03-14 08:49] MED LIST changes: +ACETAMINOPHEN TAB 500 MG TAB PO ONE; +HEPARIN SODIUM,PORCINE 5,000 UNIT/ML 1 ML VIAL SQ ONE; +LIDOCAINE 1% (10MG/ML) FOR IV START INTRADERMA PRN; +ONDANSETRON 4 MG/2 ML VIAL IVP ONE
[2020-03-14 09:48] VITALS: RESP 16
[2020-03-14 09:48] LABS: Glucose,Whole Blood 138 mg/dL (75-99)
[2020-03-14] MEDS ORDERED: DEXAMETHASONE SOD PHOSPHATE 10 MG/ML 1 ML VIAL IV ONE (09:49)
--- NOTE | 2020-03-14 10:11 | P.GSHP ---
History of Present Illness H&P Date: 03/14/20 Chief Complaint: Chronic cholecystitis 74-year-old female known to our service. Last year was found to have incidental gallstones. Starting in September began to feel pain right subcostal with radiation to the back. Has been daily at times. Repeat ultrasound confirmed gallstones. Had a HIDA scan showing a low ejection fraction as well. Some loose stools and belching. No nausea or vomiting. Recent liver enzymes normal. Past Medical History Past Medical History: Atrial Fibrillation, Cancer, Diabetes Mellitus, GERD/Reflux, Hypertension, Osteoarthritis (OA), Renal Disease, Supraventricular Tachycardia (SVT) Additional Past Medical History / Comment(s): Hx of Basal Cell skin cancer. Mild Heart murmur; Hx pericarditis, SVT. Diet controlled DM. Decreased kidney function-stable per patient. History of Any Multi-Drug Resistant Organisms: None Reported Past Surgical History: Section, Joint Replacement, Orthopedic Surgery Additional Past Surgical History / Comment(s): X2, COLONOSCOPY, RIGHT PAROTID GLAND TUMOR, RIGHT CTR, LEFT ROTATOR CUFF, MORTONS NEUROMA LEFT FOOT, Right knee replaced. Submandibular abscess 1968. Past Anesthesia/Blood Transfusion Reactions: No Reported Reaction Additional Past Anesthesia/Blood Transfusion Reaction / Comment(s): HX OF BLOOD TRANSFUSION 1975-NO REACTION. STATES DILAUDID DROPPED HER BLOOD PRESSURE AFTER SURGERY. Smoking Status: Never smoker - Past Family History Mother Family Medical History: Asthma, COPD Additional Family Medical History / Comment(s): heart issues, GIB Father Family Medical History: Hypertension Medications and Allergies Home Medications Medication Instructions Recorded Confirmed Type Calcium Carbonate/Vitamin D3 1 tab PO HS 07/01/16 03/14/20 History [Calcium 500-Vit D3 600 Tablet] Cholecalciferol [Vitamin D3 (25 2,000 unit PO HS 07/01/16 03/14/20 History Mcg = 1000 Iu)] Multivitamins, Thera [Multivitamin 1 tab PO DAILY 07/01/16 03/14/20 History (formulary)] Spironolactone [Aldactone] 25 mg PO DAILY 07/01/16 03/14/20 History Docusate [Colace] 100 mg PO DAILY 03/23/17 03/14/20 History Magnesium Oxide [Mag-Ox] 250 mg PO DAILY 03/23/17 03/14/20 History Acetaminophen [Tylenol Extra 500 - 1,000 mg PO DIRECTED PRN 03/07/20 03/14/20 History Strength] Apixaban [Eliquis] 5 mg PO BID 03/07/20 03/14/20 History Diltiazem HCl [Diltiazem HCl 24Hr 180 mg PO DAILY 03/07/20 03/14/20 History ER] Allergies Allergy/AdvReac Type Severity Reaction Status Date / Time hydromorphone [From Dilaudid] AdvReac Severe Bloodpressure Verified 03/14/20 09:31 dropped after surgery, extending stay . meperidine [From Demerol] AdvReac Unknown Vomiting Verified 03/14/20 09:31 Surgical - Exam Vital Signs Temp Pulse Resp BP Pulse Ox 97 F L 84 16 152/70 99 03/14/20 09:47 03/14/20 09:47 03/14/20 09:47 03/14/20 09:47 03/14/20 09:47 Physical exam: General: Well-developed, well-nourished HEENT: Normocephalic, sclerae nonicteric Abdomen: Nontender, nondistended Extremities: No edema Neuro: Alert and oriented Results - Labs Abnormal Lab Results - Last 24 Hours (Table) 03/14/20 Range/Units 09:47 POC Glucose (mg/dL) 138 H (75-99) mg/dL Assessment and Plan (1) Chronic cholecystitis Narrative/Plan: Will proceed with laparoscopic cholecystectomy. Risks of bleeding, infection, bile leak, bile duct injury, retained common bile duct stone, trocar injury, conversion to an open procedure, hernia, anesthesia related complications were reviewed. The patient understands and wishes to proceed. Current Visit: Yes Status: Acute Code(s): K81.1 - CHRONIC CHOLECYSTITIS SNOMED Code(s): 94519859
[2020-03-14] MEDS ORDERED: MIDAZOLAM 2 MG/2 ML VIAL ONE (10:29)
[2020-03-14] MEDS ORDERED: NEOSTIGMINE 1 MG/ML 10 ML VIAL ONE (10:29)
[2020-03-14] MEDS ORDERED: SUCCINYLCHOLINE CHLORIDE 100 MG/5 ML SYR IV ONE (10:29)
[2020-03-14] MEDS ORDERED: LIDOCAINE 1% INJ 10MG/ML (20 ML MDV) ONE (10:29)
[2020-03-14] MEDS ORDERED: fentaNYL (PF) 50 MCG/ML 2 ML AMP ONE (10:29)
[2020-03-14] MEDS ORDERED: PHENYLEPHRINE-0.9% NACL SYG 1 MG/10 ML SYRINGE ONE (10:29)
[2020-03-14] MEDS ORDERED: GLYCOPYRROLATE 0.2 MG/ML 2 ML VIAL ONE (10:29)
[2020-03-14] MEDS ORDERED: ePHEDrine SULFATE/0.9% NACL/PF 50 MG/5 ML SYRINGE IV ONE (10:29)
[2020-03-14] MEDS ORDERED: PROPOFOL 10 MG/ML 20 ML VIAL IV ONE (10:29)
[2020-03-14] MEDS ORDERED: ROCURONIUM BROMIDE 10 MG/ML 5 ML VIAL IV ONE (10:29)
[2020-03-14] MEDS ORDERED: BUPIVACAINE (PF) 0.25% 30 ML VIAL SQ ONE ×2 (10:32)
[2020-03-14] MEDS ORDERED: LACTATED RINGERS 1,000 ML IV ONE ×2 (11:28)
[2020-03-14] MEDS ORDERED: NALOXONE 0.4 MG/ML 1 ML VIAL IV PRN (11:40)
[2020-03-14] MEDS ORDERED: traMADol 50 MG TAB PO PRN (11:40)
[2020-03-14] MEDS ORDERED: HYDROcodone/APAP 5-325MG 1 EACH TAB PO PRN (11:40)
--- NOTE | 2020-03-14 11:43 | P.OP ---
Date of Procedure: 03/14/20 Procedure(s) Performed: PREOPERATIVE DIAGNOSIS: Chronic cholecystitis POSTOPERATIVE DIAGNOSIS: Same PROCEDURE: Laparoscopic cholecystectomy SURGEON: Konstantin EBL: Minimal see anesthesia record ANESTHESIA: Gen. COMPLICATIONS: None OPERATIVE PROCEDURE: The patient was brought and placed on the operating room table in the supine position. The patient was placed under general anesthesia at that time. The abdomen was prepped and draped in the usual sterile fashion. A small vertical infraumbilical incision was made. The fascia was grasped with the Zeinab forceps. The fascia was retracted anteriorly. The Veress needle was advanced into the peritoneal cavity. The saline drop test was normal. Insufflation took place up to 15 mmHg. A 5 mm optical trocar was advanced and the peritoneal cavity. 2 additional 5 mm trochars were placed in the right upper quadrant under direct visualization. A 12 mm trocar was advanced into the epigastric incision site. The gallbladder was retracted superiorly and laterally. The peritoneum overlying the infundibulum was bluntly dissected. The patient's cystic duct was visualized. The junction between the cystic duct common and hepatic duct was identified. The cystic duct was then divided after placement of 3 12 mm clips on the patient's side and one on the specimen side. The cystic artery was identified and clipped as well. A small vessel was seen along the gallbladder fossa and clipped as well. The gallbladder was then removed from the liver bed using electrocautery. The gallbladder was then removed from the epigastric trocar site with an Endo Catch bag. The gallbladder fossa was irrigated with saline. There was no evidence of any bleeding or biliary drainage seen. The fascia at the 12 millimeter site was closed using a Rian-Felipa 0 Vicryl stitch. The trochars were then removed. The skin at all 4 sites was closed using a 4-0 Monocryl stitch. Skin glue was utilized on the incision sites. At the end of this procedure the sponge and needle counts were correct. DISPOSITION: Stable to the recovery room
[2020-03-14 11:56] VITALS: TEMP 98
[2020-03-14] MEDS: fentaNYL (PF) 50 MCG/ML 2 ML AMP IV PRN ×2 (12:04→12:08)
[2020-03-14] MEDS: MORPHINE SULFATE 4 MG/ML SYRINGE IVP ONE ×2 (12:28→12:33)
[2020-03-14] MEDS ORDERED: traMADol 50 MG TAB PO ONE (13:12)
[2020-03-14 13:40] VITALS: BP 108/66; PULSE 67
== END 2020-03-14 13:55 | disposition home or self-care (01) ==
LOC: OR 08:49
PROVIDERS: ATTEND Surgery
DX: K80.10 Calculus of gallbladder with chronic cholecystitis without obstruction (principal); I48.91 Unspecified atrial fibrillation; I47.1 Supraventricular tachycardia; I12.9 Hypertensive chronic kidney disease with stage 1 through stage 4 chronic kidney disease, or unspecified chronic kidney disease; E11.22 Type 2 diabetes mellitus with diabetic chronic kidney disease; N18.9 Chronic kidney disease, unspecified; M19.90 Unspecified osteoarthritis, unspecified site; K21.9 Gastro-esophageal reflux disease without esophagitis; Z88.5 Allergy status to narcotic agent; Z79.01 Long term (current) use of anticoagulants; Z79.891 Long term (current) use of opiate analgesic; Z79.899 Other long term (current) drug therapy; Z85.828 Personal history of other malignant neoplasm of skin; Z96.651 Presence of right artificial knee joint; Z98.890 Other specified postprocedural states; Z82.5 Family history of asthma and other chronic lower respiratory diseases; Z82.49 Family history of ischemic heart disease and other diseases of the circulatory system
CPT/HCPCS: 88304; 47562; J2250; J2270; J1644; J1100; J2710; J0690; J2405; J2001; J3010; J2370; J0330; J2704